=== PATIENT | female | born 1970 | race Caucasian/White ===

== ENCOUNTER 2016-11-04 09:12 | Observation (INO) | payer SELFPAY ==
[2016-11-04] MEDS ORDERED: Labetalol IV* 5 MG/ML 20 ML VIAL IV PUSH ONE ×2 (09:28→10:13)
[2016-11-04] MEDS ORDERED: Aspirin Low Dose CHEW TAB* 81 MG PO ONE (09:28)
[2016-11-04 09:54] LABS: Hematocrit 40 % (35-47); Hemoglobin 12.6 g/dl (12.0-16.0); Mean Corpuscular HGB Conc 32 g/dl (31-36); Mean Corpuscular Hemoglobin 25 pg (27-31); Mean Corpuscular Volume 79 fL (80-97); Mean Platelet Volume 8 um3 (7.4-10.4); Red Blood Count 5.06 10^6/ul (4.0-5.4); Red Cell Distribution Width 17 % (10.5-15); White Blood Count 5.4 10^3/ul (3.5-10.8)
[2016-11-04 10:17] LABS: Albumin 3.9 g/dL (3.2-5.2); BUN/Creatinine Ratio 9.2 (8-20); Calcium 9.1 mg/dL (8.6-10.3); EGFR Non-African American 70.7 (>60); Globulin 3.1 g/dL (2-4); Potassium 3.6 mmol/L (3.5-5.0); Total Bilirubin 0.6 mg/dL (0.2-1.0)
[2016-11-04 10:20] LABS: Troponin I 0.04 ng/mL (<0.04)
[2016-11-04 11:04] LABS: TSH (Thyroid Stimulating Horm) 5.66 mcIU/mL (0.34-5.60)
--- NOTE | 2016-11-04 11:07 | RAD ---
Indication: Hypertension. Single frontal view of the chest performed at 1033 hours was reviewed. Comparison is made with previous exam dated October 04, 2015. No mediastinal shift is noted. Heart is of normal size and configuration. Lung ochoa appear clear. IMPRESSION: NO ACTIVE CARDIOPULMONARY DISEASE IS NOTED.
[2016-11-04] MEDS ORDERED: Labetalol IV* 5 MG/ML 20 ML VIAL IV PUSH PRN (11:20)
[2016-11-04] MEDS ORDERED: Hydrochlorothiazide TAB* 25 MG ONE (11:21)
[2016-11-04] MEDS ORDERED: Hydrochlorothiazide TAB* 25 MG PO SCH (12:00)
--- NOTE | 2016-11-04 13:12 | HP ---
CC: Dr. Malcolm HISTORY AND PHYSICAL: DATE OF ADMISSION: 11/04/16 PRIMARY CARE PHYSICIAN: Dr. Malcolm. CHIEF COMPLAINT: Headache, vision problems, dyspnea on exertion. HISTORY OF PRESENT ILLNESS: Ms. Trevino is a pleasant 45-year-old female with a past medical history of hypertension, who presented to the hospital with 2-3 days of vision changes, shortness of breath, and headache. The patient states her symptoms began on Thursday, which was 3 days ago. She said she noticed a "fuzziness" in her eyes. Would intermittently feel lightheaded with dyspnea on exertion. She also felt nauseous; however, she does not have any emesis. Had a headache intermittently that seemed to improve with ibuprofen. Denies any chest pain. Symptoms were ongoing for the past few days, coming and going. She had been checking her blood pressures at home and noticed that they were elevated as per readings at home, with systolics in the 180s and diastolics in the 120s. She states her friends and family continued to pressure her to come to the hospital, which she finally decided to do today. Denies any fever, chills, diarrhea, constipation, dysuria, hematuria, hematochezia. Has noticed a dry cough. She states she had been on high blood pressure medications in the past, but after she had an ankle surgery, she stopped taking them. She states she was not sure if they were discontinued or she just stopped herself. She cannot recall what the medication was. She follows up with Dr. Malcolm and she states she last saw him maybe 6 months ago. PAST MEDICAL HISTORY: Hypertension. PAST SURGICAL HISTORY: Ankle surgery, tubal ligation. HOME MEDICATIONS: None. ALLERGIES: PENICILLIN that causes nausea and vomiting. FAMILY HISTORY: Significant for her mother with hypertension and a maternal grandmother with hypertension. SOCIAL HISTORY: The patient has a [id number] smoking history, still smoking about a half pack per day, reports having 3-4 beers 2-3 times a week. Denies any illicit drug use. PHYSICAL EXAMINATION GENERAL: The patient is a middle-aged female, lying in bed in no apparent distress. VITAL SIGNS: Temperature 97.4, heart rate of 106, respiratory rate of 16, O2 saturation 100% on room air, initial blood pressure 239/138. HEENT: Head normocephalic and atraumatic. Eyes, pupils are equal, round, and reactive to light and accommodation. Anicteric sclerae. ENT, dry mucous membranes. No cervical adenopathy. CARDIOVASCULAR: Regular rate and rhythm. S1, S2 present. No murmurs, gallops , or rubs. LUNGS: Clear to auscultation bilaterally. No wheezes, rales, or rhonchi. ABDOMEN: Soft, nontender, nondistended. Bowel sounds positive. EXTREMITIES: No cyanosis, clubbing, or edema. NEURO: The patient is alert and oriented x3. No focal neurological deficits. DIAGNOSTIC STUDIES/LAB DATA: White blood cell count of 5.4, hematocrit of 40, platelets of 279. Sodium of 132, potassium 3.6, chloride of 107, carbon dioxide 22, BUN 8, creatinine 0.87, glucose of 83, AST of 56, ALT of 64. CK of 80, CK-MB of 3.5, troponin 0.04, B-natriuretic peptide of 305. TSH of 5.66. EKG, personally reviewed, showed sinus tachycardia, some signs of LVH, T-wave inversions in I, aVL and V6, which do not seem new. Chest x-ray, final read pending; however, on my review, I do not see any abnormalities. ASSESSMENT AND PLAN: Hypertensive urgency, slight troponin elevation in a 45- year- old female with a past medical history of hypertension, not on medications. 1. Hypertensive Urgency: The patient received a total of 40 mg of IV labetalol in the emergency department, with some improvement in her blood pressures. Last blood pressure was 160/110, which is an improvement. Will start HCTZ and continue the patient on p.r.n. labetalol. We will monitor her blood pressures. 2. Troponin elevations. The patient has not had any chest pain, troponin is likely from strain due to HTN. EKG changes do not seem to be new. We will monitor the patient on telemetry and trend her troponins. 3. DVT prophylaxis. Ambulate. 4. Code status. The patient is a full code. TIME SPENT: Total time spent on this admission 35 minutes, with over half the time spent [id number] with the patient in counseling and coordinating care. [id number]/[facility] #: [id number] [facility] HOSPITALJoyce
[2016-11-04] MEDS ORDERED: Acetaminophen TAB* 325 MG PO PRN (13:34)
[2016-11-04 14:52] LABS: Urine Bacteria Absent (Absent); Urine Bilirubin Negative (Negative); Urine Glucose Negative (Negative); Urine Nitrite Negative (Negative)
[2016-11-04 16:49] VITALS: BP 149/90
--- NOTE | 2016-11-04 17:41 | ED ---
Tonny Maxwell Rebecca, scribed for Tyrone Resendez MD on 11/04/16 at 0948 . Hypertension - HPI Summary HPI Summary: Pt is a 45 y/o F who presents to ED c/o elevated BP. Reports that she has been using a home BP reader and her BP was been chronically elevated. Pt reports presenting to the ED today because she was urged by family members. Reports mild KWONG, slight chest discomfort and acute on chronic SOB. Sx aggravated and alleviated by nothing. Denies blurred vision. PMHx HTN - previously was on medication, but was taken off 5 years ago after an ankle surgery. SHx current smoker. - History of Current Complaint Chief Complaint: EDHypertension Stated Complaint: HIGH BLOOD PRESSURE Time Seen by Provider: 11/04/16 09:28 Hx Obtained From: Patient Hx Last Menstrual Period: 1 WEEK AGO Onset/Duration: Still Present Aggravating Factor(s): Nothing Alleviating Factor(s): Nothing Associated Signs & Symptoms: Chest Pain - mild, Headaches - mild, SOB - Allergies/Home Medications Allergies/Adverse Reactions: Allergies Allergy/AdvReac Type Severity Reaction Status Date / Time Penicillins [PCN] Allergy Intermediate Vomiting Verified 11/04/16 09:51 Home Medications: Home Medications NK [No Home Medications Reported] 11/04/16 [History Confirmed 11/04/16] PMH/Surg Hx/FS Hx/Imm Hx Cardiovascular History: Reports: Hx Hypertension Respiratory History: Reports: Hx Chronic Obstructive Pulmonary Disease (COPD), Hx Pneumonia - Cancer History Hx Chemotherapy: No Hx Radiation Therapy: No - Surgical History Surgery Procedure, Year, and Place: RIGHT ANKLE FX REPAIR, TUBAL LIGATION - Immunization History Date of Tetanus Vaccine: Up to date Date of Influenza Vaccine: None Infectious Disease History: No Infectious Disease History: Denies: History Other Infectious Disease, Traveled Outside the [place] in Last 30 Days - Family History Known Family History: Negative: Cardiac Disease - Social History Alcohol Use: Occasionally Substance Use Type: Reports: None Hx Tobacco Use: Yes Smoking Status (MU): Current Every Day Smoker Type: Cigarettes Review of Systems Negative: Blurred Vision Positive: Chest Pain - mild discomfort Positive: Shortness Of Breath - acute on chronic Positive: Headache - mild All Other Systems Reviewed And Are Negative: Yes Physical Exam - Summary Physical Exam Summary: VITAL SIGNS: Reviewed. GENERAL: Patient is an obese female who is lying comfortable in the stretcher. Patient is not in any acute respiratory distress and has on complaints. HEAD AND FACE: No signs of trauma. No ecchymosis, hematomas or skull depressions. No sinus tenderness. EYES: PERRLA, EOMI x 2, No injected conjunctiva, no nystagmus. EARS: Hearing grossly intact. Ear canals and tympanic membranes are within normal limits. MOUTH: Oropharynx within normal limits. NECK: Supple, trachea is midline, no adenopathy, no JVD, no carotid bruit, no c- spine tenderness, neck with full ROM. CHEST: Symmetric, no tenderness at palpation LUNGS: Clear to auscultation bilaterally. No wheezing or crackles. CVS: Regular rate and rhythm, S1 and S2 present, no murmurs or gallops appreciated. ABDOMEN: Soft, non-tender. No signs of distention. No rebound no guarding, and no masses palpated. Bowel sounds are normal. EXTREMITIES: FROM in all major joints, no edema, no cyanosis or clubbing. NEURO: Alert and oriented x 3. No acute neurological deficits. Speech is normal and follows commands. SKIN: Dry and warm Triage Information Reviewed: Yes Vital Signs On Initial Exam: Initial Vitals Temp Pulse Resp BP Pulse Ox 97.4 F 106 16 239/138 100 11/04/16 09:15 11/04/16 09:15 11/04/16 09:15 11/04/16 09:15 11/04/16 09:15 Vital Signs Reviewed: Yes Diagnostics - Vital Signs Vital Signs Temp Pulse Resp BP Pulse Ox 11/04/16 09:18 97.4 F 105 16 239/138 99 11/04/16 09:15 97.4 F 106 16 239/138 100 - Laboratory Result Diagrams: 11/04/16 09:40 11/04/16 09:40 Lab Statement: Any lab studies that have been ordered have been reviewed, and results considered in the medical decision making process. - EKG 0933 Cardiac Rate: Tachycardia - 107 bpm EKG Rhythm: Sinus Tachycardia EKG Interpretation: no ST elevations, T wave inversion in aVL and ST depression in V6 Hypertension Course/Dx - Course Assessment/Plan: Pt is a 45 y/o F who presents to ED c/o elevated BP. Reports that she has been using a home BP reader and her BP was been chronically elevated. Pt reports presenting to the ED today because she was urged by family members. Reports mild KWONG, slight chest discomfort and acute on chronic SOB. Sx aggravated and alleviated by nothing. Denies blurred vision. PMHx HTN - previously was on medication, but was taken off 5 years ago after an ankle surgery. SHx current smoker. Test results within normal limits except for sodium of 132, BNP of 305 and trop of 0.04, TSH 5.6. EKG shows sinus rhythm without ST elevation. In the ED course, we obtained an IV access for the patient. The patients BP is significantly elevated and it looks like she is in hypertensive urgency since she has a KWONG and CP. The patient was administered 20 mg Labetalol. The BP still very high, therefore she was given a second dose of Labetalol. At this point, because the hypertensive urgency and troponin we will r/o ACS. I disclosed the case with Dr. Longoria who accepts patient for admission. The patient is hemodynamically stable and AxOx3. - Diagnoses Provider Diagnoses: Hypertensive urgency, Elevated troponin, r/o ACS - Physician Notifications Discussed Care Of Patient With: Nima Longoria - Accepts pt for admission Time Discussed With Above Provider: 10:50 Discharge - Discharge Plan Condition: Good Disposition: ADMITTED TO [facility] The documentation as recorded by the Tonny willett Rebecca accurately reflects the service I personally performed and the decisions made by me, Tyrone Resendez MD.
== END 2016-11-04 19:43 | disposition home or self-care (01) ==
LOC: ED 09:12 → MEDTELE 10:51
PROVIDERS: ADMIT Hospitalist; ATTEND Hospitalist
DX: I16.0 Hypertensive urgency (principal); R74.8 Abnormal levels of other serum enzymes; R51 Headache; R06.00 Dyspnea, unspecified; H53.9 Unspecified visual disturbance; I10 Essential (primary) hypertension; J44.9 Chronic obstructive pulmonary disease, unspecified; R07.9 Chest pain, unspecified; R06.02 Shortness of breath; F17.210 Nicotine dependence, cigarettes, uncomplicated; R00.0 Tachycardia, unspecified; R94.31 Abnormal electrocardiogram [ECG] [EKG]
CPT/HCPCS: 36415; 71010; 80053; 81003; 81015; 82550; 82553; 83605; 83735; 83880; 84443; 84484; 85025; 93005; 96374; 96376; 99283; A9270-GY; G0378

== ENCOUNTER 2017-02-03 12:15 | Emergency (ER) | payer SELFPAY ==
--- NOTE | 2017-02-03 14:00 | UC ---
Hypertension HPI - HPI Summary HPI Summary: patient with a known history of HTN, was on HCTZ, however stopped for several weeks. Notes KWONG, lightheadedness, dizziness, b/l leg swelling and redness of toes, fingertips. Does not have insurance currently so has not follow up with PCP for med refill. - History of Current Complaint Chief Complaint: UCRespiratory Stated Complaint: URI Time Seen by Provider: 02/03/17 13:46 Hx Obtained From: Patient Hx Last Menstrual Period: 02/03/17 Onset/Duration: Gradual Onset, Lasting Weeks Associated Signs And Symptoms: Positive: Headaches, Dizziness, Swelling Current Medications: Diuretic - not taken x several weeks. - Allergies/Home Medications Allergies/Adverse Reactions: Allergies Allergy/AdvReac Type Severity Reaction Status Date / Time Penicillins [PCN] Allergy Intermediate Vomiting Verified 11/04/16 09:51 PMH/Surg Hx/FS Hx/Imm Hx Cardiovascular History: Hypertension - Surgical History Surgical History: Yes Surgery Procedure, Year, and Place: RIGHT ANKLE FX REPAIR, TUBAL LIGATION - Family History Known Family History: Positive: None - NO HEART ATTACKS, NO HISTORY OF BLOOD CLOTS Negative: Cardiac Disease - Social History Alcohol Use: Occasionally Alcohol Amount: 4-5 drinks/ week Substance Use Type: None Smoking Status (MU): Current Every Day Smoker Type: Cigarettes Amount Used/How Often: 1/2 PPD Review of Systems Cardiovascular: Other - HTN Musculoskeletal: Edema - b/l LE Neurological: Headache, Weakness All Other Systems Reviewed And Are Negative: Yes Physical Exam Triage Information Reviewed: Yes Appearance: Well-Appearing, No Pain Distress, Well-Nourished Vital Signs: Initial Vital Signs Temp 97.6 F 02/03/17 13:39 Pulse 103 02/03/17 13:39 Resp 18 02/03/17 13:39 BP 238/147 02/03/17 13:39 Pulse Ox 98 02/03/17 13:39 Vital Signs Reviewed: Yes Eyes: Positive: Conjunctiva Clear Respiratory: Positive: Normal breath sounds, No respiratory distress, No accessory muscle use, Crackles - b/l LL's Cardiovascular: Positive: No Murmur, Pulses Normal, Tachycardia Abdomen Description: Positive: Nontender, No Organomegaly, Soft, Bruit Musculoskeletal: Positive: Edema @ - b/l les minimal, pulses 2+ Hypertension Course/Dx - Course Course Of Treatment: adryn transferred to [facility] ER for further treatment - Differential Dx/Diagnosis Differential Diagnosis/HQI PQRI: Hypertension, Hypertensive Crisis, Hypertensive Urgency Provider Diagnoses: HTN emergency Discharge - Discharge Plan Condition: Fair Disposition: TRANS HIGHER LVL OF CARE FAC Referrals: Tao Malcolm MD [Primary Care Provider] - Additional Instructions: -Hypertensive emergency- patient transferred via [place] to [facility] ER
[2017-02-03] MEDS ORDERED: Aspirin Low Dose CHEW TAB* 81 MG PO ONE (14:02)
[2017-02-03] MEDS ORDERED: Aspirin Low Dose CHEW TAB* 81 MG ONE (14:03)
[2017-02-03 14:19] VITALS: BP 240/127
== END 2017-02-03 14:05 | disposition short-term general hospital (02) ==
LOC: UCEAST 12:15
DX: I10 Essential (primary) hypertension (principal); Z72.0 Tobacco use
CPT/HCPCS: 93005; 99213; A9270-GY; G0463

== ENCOUNTER 2017-02-03 14:29 | Observation (INO) | payer SELFPAY ==
[2017-02-03] MEDS ORDERED: Aspirin Low Dose CHEW TAB* 81 MG PO ONE (15:09)
[2017-02-03] MEDS ORDERED: Hydrochlorothiazide TAB* 25 MG PO ONE (15:10)
[2017-02-03] MEDS ORDERED: Metoprolol Tartrate IV* 1 MG/ML 5 ML VIAL IV ONE ×2 (15:10→16:51)
--- NOTE | 2017-02-03 15:33 | RAD ---
INDICATION: Hypertension, peripheral edema. COMPARISON: Comparison is made with a prior chest x-ray study from November 04, 2016. TECHNIQUE: A portable view of the chest was obtained. FINDINGS: The heart appears mildly prominent and unchanged from the prior exam. Mediastinal contours appear normal. The lungs are clear. No pleural effusion is seen. IMPRESSION: NO EVIDENCE FOR ACUTE DISEASE.
[2017-02-03 16:05] LABS: Hematocrit 41 % (35-47); Hemoglobin 13.2 g/dl (12.0-16.0); Mean Corpuscular HGB Conc 32 g/dl (31-36); Mean Corpuscular Hemoglobin 26 pg (27-31); Mean Corpuscular Volume 79 fL (80-97); Mean Platelet Volume 8 um3 (7.4-10.4); Red Blood Count 5.14 10^6/ul (4.0-5.4); Red Cell Distribution Width 19 % (10.5-15)
[2017-02-03 16:13] LABS: Albumin 4.2 g/dL (3.2-5.2); BUN/Creatinine Ratio 11.7 (8-20); Calcium 9.7 mg/dL (8.6-10.3); EGFR African American 68.4 (>60); EGFR Non-African American 53.2 (>60); Globulin 3.5 g/dL (2-4); Total Bilirubin 0.7 mg/dL (0.2-1.0); Total Protein 7.7 g/dL (6.4-8.9)
[2017-02-03 16:19] LABS: Troponin I 0.06 ng/mL (<0.04)
[2017-02-03] MEDS ORDERED: hydrALAZINE IV* 20 MG/ML VIAL IV SLOW PU PRN (17:24)
[2017-02-03] MEDS ORDERED: Azithromycin TAB* 250 MG PO ONE (17:31)
[2017-02-03] MEDS ORDERED: Albuterol 2.5 MG/3 ML NEB.SOL* (0.083%) INH PRN (17:32)
[2017-02-03] MEDS ORDERED: amLODIPine TAB* 5 MG ONE (18:07)
[2017-02-03] MEDS: amLODIPine TAB* 5 MG PO SCH (18:10)
[2017-02-03] MEDS ORDERED: hydrALAZINE IV* 20 MG/ML VIAL ONE (19:58)
[2017-02-03 20:35] LABS: Urine Bacteria Absent (Absent); Urine Bilirubin Negative (Negative); Urine Glucose Negative (Negative); Urine Nitrite Negative (Negative)
--- NOTE | 2017-02-03 23:16 | HP ---
CC: Dr. Malcolm * HISTORY AND PHYSICAL: DATE OF ADMISSION: 02/03/17 PRIMARY CARE PROVIDER: Dr. Malcolm. ATTENDING PHYSICIAN WHILE IN THE HOSPITAL: Dr. Seng Yun * (report dictated by Damon Pantoja NP) CHIEF COMPLAINT: 1. Cold symptoms. 2. Cough. 3. Rhinorrhea. 4. Elevated blood pressure. HISTORY OF PRESENT ILLNESS: Ms. Trevino is a 46-year-old female patient, who comes in today, she actually went to Urgent Care originally today because she was having complaints of cold symptoms. She last week has been having runny nose, coughing, feeling congested. She woke up this morning, her eyes were swollen. She had been having some increasing shortness of breath over the last week, in addition to this, had just not been feeling well. She has been aching all over. She states that she had chills last night and she just was not feeling well. She came into the emergency department today after being referred here because at Urgent Care, it was noted that her blood pressures were in the 200 systolically/120. She was on hydrochlorothiazide up until about a month ago when she ran out of insurance and was unable to take the medication. In addition to this, she has been taking Mucinex DM and she has also been taking NyQuil DM as well. She denies having any headache. Denies any blurry vision. Denies having any chest pain. She came into the ER and noted to have an elevated troponin. She denied having any orthopnea and denied having any swelling of the extremities. She was evaluated in the ED because of the increased blood pressure, the fact that her troponin was mildly elevated, we were asked to evaluate for admission. PAST MEDICAL HISTORY: Significant for hypertension. PAST SURGICAL HISTORY: 1. She has had ankle surgery. 2. She has had tubal ligation. MEDICATIONS: Her home meds, she is not currently taking meds, she is supposed to be taking hydrochlorothiazide 25 mg p.o. daily. ALLERGIES: Her allergies to medications include PENICILLIN. FAMILY HISTORY: Mother had history of hypertension. Father's history reviewed and noncontributory. She says that as far as she knows, her father is healthy. SOCIAL HISTORY: She still smokes about 1 to 2 cigarettes a day. She has been smoking since the age of 16. She does drink occasionally. Surrogate decision maker is her . REVIEW OF SYSTEMS: There is no documented fever. She did admit to having chills. No significant weight change. No double vision. No ear discharge. There was rhinorrhea. There was sore throat. No thyroid enlargement. Denied having any chest pain. No orthopnea, no nocturnal dyspnea. There was no abdominal pain. No nausea, no vomiting. No dysuria, no frequency. No seizure , no loss of consciousness. No pruritus and no skin ulceration. Review of 14 systems completed, all others negative. PHYSICAL EXAMINATION GENERAL: At this time, Ms. Trevino is a 46-year-old female patient. She is sitting in the ER stretcher. She does not appear to be in any acute distress. She is awake, alert, and oriented x3. VITAL SIGNS: Reveal initially blood pressure 225/140, pulse of 88, respirations 18, O2 sat was 97%, temperature 98.5, last blood pressure was noted to be 180/101. HEENT: Head atraumatic, normocephalic. Eyes: EOMs intact. Sclerae anicteric , not pale. Throat: Oral mucosa appears to be moist. NECK: Supple. No oropharyngeal erythema. LUNGS: Clear to auscultation. No wheezes, rales, or rhonchi. HEART: Sounds S1, S2. Regular rate and rhythm. No murmurs, rubs, or gallops. ABDOMEN: Soft, flat, nontender. Bowel sounds present. EXTREMITIES: Pulses were 2+ throughout. No peripheral edema. She is able to move all 4 extremities with 5/5 strength. NEUROLOGIC: The patient is awake, alert, and oriented x3. Tongue midline. Chinese Herbalist were equal. No gross focal deficits. SKIN: Grossly intact. DIAGNOSTIC STUDIES/LAB DATA: Today revealed WBC of 7.0, RBC of 5.14, hemoglobin of 13.2, hematocrit of 41, platelet count of 270. Sodium 135, potassium of 4, chloride of 101, bicarb 27, BUN 13, creatinine 1.11, glucose of 94, lactate of 1.2, calcium 9.7. Total bili 0.7, AST 36, ALT 28, alk phos 81. Troponin 0.06. Albumin of 4.2. She did have a chest x-ray obtained today showed no evidence of acute disease. EKG did show a sinus rhythm, rate of 91. She had T-wave inversions in lead I, ST depression in lead II, inversions in V1, V5, V6. I reviewed it with the previous EKG, it appears to be similar. She does have criteria for LVH. No significant change from previous EKG. Old medical records were reviewed. ASSESSMENT AND PLAN: Ms. Trevino is a 46-year-old female patient coming in to the ER today with complaints of upper respiratory symptoms and cold symptoms for the last week, continuing to smoke. In addition to this, in urgent care found to have elevated blood pressure. She will be admitted under observation status for: 1. Hypertensive urgency. At this point, I am going to go ahead and reinstate her hydrochlorothiazide. We will get on her some Norvasc. We have ordered p.r.n. hydralazine. I think she is not having any chest pain currently. No headache. No signs of hypertension emergency. We will get her on telemetry and we will cycle her troponins and get an echo. I suspect that the reason her blood pressure is elevated is because she has been missing her meds. In addition to this, she has been taking medications for her cold that do contain decongestion. 2. Elevated troponins. Probably secondary to some left ventricular strain secondary to the blood pressure. We will get the blood pressure under control. She already got an aspirin, we will continue baby aspirin. Going forward, we are getting the echo. We will trend these. Obviously, if they go up, I will get Cardiology input. 3. Upper respiratory infection. She has been dealing with this for weeks. She is continuing to smoke. She had chills last night. So, I am going to put her on Z- Fletcher. We will give her 500 mg now and then 250 starting. I have ordered p.r.n. albuterol and I have told her to avoid decongestants and I am checking a flu swab. 4. DVT prophylaxis. I am going to put her on SCDs only. 5. Code status. Full code. 6. Fluids, electrolytes, and nutrition. She can have a heart healthy diet. 7. Social issues. I did place a Social Work consult as the patient does not have insurance. TIME SPENT: On the admission 60 minutes; greater than half the time was spent face- to-face with the patient obtaining my history and physical, other half the time was spent going over the plan of care with the patient and implementing the plan of care. I did discuss plan of care with my attending, Dr. Yun; he is in agreement. DAMON PANTOJA NP [id number]/[facility] #: [id number] [facility]
[2017-02-04 07:05] LABS: Hematocrit 39 % (35-47); Hemoglobin 12.6 g/dl (12.0-16.0); Mean Corpuscular HGB Conc 32 g/dl (31-36); Mean Corpuscular Hemoglobin 26 pg (27-31); Mean Corpuscular Volume 79 fL (80-97); Mean Platelet Volume 8 um3 (7.4-10.4); Red Blood Count 4.94 10^6/ul (4.0-5.4); Red Cell Distribution Width 19 % (10.5-15); White Blood Count 6.9 10^3/ul (3.5-10.8)
[2017-02-04 07:23] LABS: Calcium 9.3 mg/dL (8.6-10.3); EGFR African American 71.3 (>60); EGFR Non-African American 55.5 (>60); Potassium 3.5 mmol/L (3.5-5.0)
[2017-02-04] MEDS ORDERED: Azithromycin TAB* 250 MG PO SCH (09:00)
[2017-02-04] MEDS ORDERED: Aspirin Low Dose CHEW TAB* 81 MG PO SCH (09:00)
[2017-02-04] MEDS ORDERED: Hydrochlorothiazide TAB* 25 MG PO SCH (09:00)
[2017-02-04] MEDS: amLODIPine TAB* 5 MG PO SCH (10:21)
--- NOTE | 2017-02-04 12:55 | ECHO ---
Patient: JOANNA ALAMO [facility] Rec#: [id number] : 1970 Date: 02/04/2017 Age: 46y Height: 157.48 cm / 62.0 in Weight: 95.25 kg / 209.9 lbs Sex: F BSA: 1.95 Room#: [facility] Admit Date#: 02/03/2017 Type: Inpatient Referring: Damon Pantoja NP Reading: Lora Jackson MD Senior Systems Software Engineer: Teresa Almanzar RDCS CC: Tao Malcolm MD Transthoracic Echocardiogram Indication: Hypertension BP: 177/109 HR: 85 Rhythm: NSR Findings History: Smoker. Technical Comments: The study quality is fair. The study is technically limited due to patient body habitus. The study is technically limited due to the patient's smoking history. Completed at 1015. Left Ventricle: The left ventricular chamber size is normal. Severe concentric left ventricular hypertrophy is observed. There is increased basal septal hypertrophy noted without evidence of an increased gradient across the left ventricular outflow tract. There is normal left ventricular systolic function. The estimated ejection fraction is 55-60%. Abnormal left ventricular diastolic function is observed. Left Atrium: The left atrium is moderately dilated. Right Ventricle: Moderator Band present. The right ventricle is mildly dilated. The right ventricle wall thickness is moderately increased. The right ventricular global systolic function is mildly to moderately reduced. Right Atrium: The right atrium is moderately dilated. Aortic Valve: The aortic valve is trileaflet. The aortic valve leaflets are mildly thickened. There is mild aortic regurgitation. eccentric jet. There is no evidence of aortic stenosis. Mitral Valve: The mitral valve leaflets are mildly thickened. Mitral valve leaflet mobility is moderately restricted. There is mild to moderate mitral regurgitation. There is mild mitral stenosis. Tricuspid Valve: The tricuspid valve leaflets are normal. There is moderate tricuspid regurgitation. The right ventricular systolic pressure is estimated at 72 mmHg. There is evidence of severe pulmonary hypertension. There is no tricuspid stenosis. Pulmonic Valve: The pulmonic valve appears normal. There is mild to moderate pulmonic regurgitation. eccentric jet and centra jet. There is no pulmonic stenosis. Pericardium: There is no significant pericardial effusion. A pericardial fat pad is visualized. Aorta: There is no dilatation of the ascending aorta. There is mild dilatation of the aortic arch. The aortic root is normal in size. Pulmonary Artery: The main pulmonary artery appears normal. Venous: Hepatic vein systolic flow is reversed. Conclusions Severe concentric left ventricular hypertrophy is observed. Single papillary muscle noted. There is normal left ventricular systolic function. The estimated ejection fraction is 55-60%. Abnormal left ventricular diastolic function. The right ventricle wall thickness is moderately increased. The right ventricular global systolic function is mildly to moderately reduced. Aortic valve sclerosis with mild aortic regurgitation, eccentric jet. Mitral valve leaflet mobility is moderately restricted, chordae from both leaflets attach to single papillary muscle. There is moderate mitral regurgitation. There is mild mitral stenosis: V max 2.11 m/s, mean gradient 7.7 mmHg, MVA P 1/2 is 2.5 cm2 . There is moderate tricuspid regurgitation. There is evidence of severe pulmonary hypertension: 72 mmHg. There is mild to moderate pulmonic regurgitation. There is mild dilatation of the aortic arch. No prior echo available to compare. Measurements Name Value Normal Range RVIDd (AP) 2D 3.2 cm (0.9 - 2.6) RVDdMajor (2D) 4.4 cm (2.2 - 4.4) RVAW (2D) 0.9 cm (0.2 - 0.5) RAd ISD 4CH 5.9 cm (3.4 - 4.9) RA (A4C)W 4 cm (2.9 - 4.6) IVSd (2D) 2.1 cm (0.6 - 1) LVPWd (2D) 1.7 cm (0.6 - 1) LVIDd (2D) 3.8 cm (3.6 - 5.4) LVIDs (2D) 2.5 cm - LV FS (2D) 34 % (25 - 45) Aortic Annulus 1.9 cm (1.4 - 2.6) Ao root diameter (2D) 2.7 cm (2.1 - 3.5) Ascending Ao 3.1 cm (2.1 - 3.4) Aortic arch 3.41 cm (1.8 - 3.4) LA dimension (AP) 2D 4.7 cm (2.3 - 3.8) LAd ISD 4CH 6.3 cm (2.9 - 5.3) LA ISD 4CH W 5 cm (2.5 - 4.5) Name Value Normal Range LA ESV SP 4CH (A/L) 91 ml - LA ESV SP 2CH (A/L) 65 ml - LA ESV BP (A/L) 77 ml - LA ESV BP (A/L) index 39.57 ml/m2 - LA ESV SP 4CH (MOD) 85 ml - LA ESV SP 2CH (MOD) 62 ml - Name Value Normal Range MV E-wave Vmax 1.63 m/sec - MV deceleration time 244.18 msec - MV A-wave Vmax 1.12 m/sec - MV E:A ratio 1.4 ratio - LV septal e' Vmax 0.04 m/sec - LV lateral e' Vmax 0.04 m/sec - LV E:e' septal ratio 40.75 ratio - LV E:e' lateral ratio 40.75 ratio - Name Value Normal Range AV Vmax 1.54 m/sec - AV VTI 24.2 cm - AV peak gradient 9.48 mmHg - AV mean gradient 5.12 mmHg - LVOT Vmax 1.24 m/sec - LVOT VTI 21.11 cm - LVOT peak gradient 6.11 mmHg - LVOT mean gradient 3.24 mmHg - AR PHT 596.3 msec - AR peak gradient 105.2 mmHg - HAYLIE Vmax 0.65 m/sec - Name Value Normal Range MV Vmax 2.11 m/sec - MV VTI 48.77 cm - MV peak gradient 17.78 mmHg - MV mean gradient 7.67 mmHg - MV PHT 86.72 msec - MVA (PHT) 2.54 cm2 - Name Value Normal Range TR Vmax 4 m/sec - TR peak gradient 64 mmHg - RAP 8 mmHg - RVSP 72 mmHg - IVC diameter 1.8 cm - Name Value Normal Range PV Vmax 0.76 m/sec - PV peak gradient 2.3 mmHg - ME end-diastolic Vmax 1.95 m/sec -
--- NOTE | 2017-02-04 14:24 | DCNOTE ---
Patient seen this morning. Reports URI symptoms resolved. Feeling much better. No chest pain, headache, N/V. On exam, RRR, s1 and s2 presnent, no m/g/r, lungs CTA B/L, no w/r/r, abd obese, soft, NTND, BS+, no LE edema Will plan to discharge on BP medications and a few additional days of Azithromycin. Stressed the importance of medication compliance and PCP follow- up and the risk of stroke. Also counseled on smoking cessation.
[2017-02-04 18:09] VITALS: BP 161/97
--- NOTE | 2017-02-05 08:41 | ED ---
Daniel Maxwell Thomas, scribed for Stanislaw Abel MD on 02/03/17 at 1455 . Hypertension - HPI Summary HPI Summary: The pt is a 46 y/o F referred from [facility] [facility] with a blood pressure reading of 225/ 140. In the ED, she complains of ankle swelling, dizziness, and KWONG. She denies CP, blurred vision, slurred speech, tingling, and numbness. She says that she has been having elevated blood pressures for the last 3 or 4 weeks. She was admitted to [facility] on 11/04/16 for hypertensive urgency. She says that after her discharge from [facility], she was prescribed HCTZ 25mg PO. She says that she can afford this medication although she cannot afford another appointment with her PCP. PMHx: COPD, HTN, PNA. PSHx: R ankle repair, tubal ligation. SHx: current smoker, occasional alcohol use, no illicit drug use. She is accompanied by her friend. PMHx: HTN, COPD, PNA. PSHx: R ankle repair, tubal ligation. SHx: current smoker, occasional alcohol use, no illicit drug use. FHx: negative for AL. Her PCP is Dr. Malcolm. - History of Current Complaint Chief Complaint: EDGeneral Stated Complaint: HEADACHE,INCREASED BP-SENT FROM [facility] Time Seen by Provider: 02/03/17 14:46 Hx Obtained From: Patient, Family/Dry Cleaning Counter Clerk - friend is present Hx Last Menstrual Period: 02/03/17 Onset/Duration: Started Hours Ago - referred from [facility] [place] today, Still Present Timing: Constant Reported Blood Pressure Prior To Arrival: 225/140 Aggravating Factor(s): Nothing Alleviating Factor(s): Nothing Associated Signs & Symptoms: Headaches, Dizziness, Swelling - ankle, Other: - NEG: CP, blurred vision, slurred speech, tingling, numbness Related Hx: Similar Episode - to prior hypertensive urgency - Allergies/Home Medications Allergies/Adverse Reactions: Allergies Allergy/AdvReac Type Severity Reaction Status Date / Time Penicillins [PCN] Allergy Intermediate Vomiting Verified 11/04/16 09:51 PMH/Surg Hx/FS Hx/Imm Hx Previously Healthy: No Cardiovascular History: Reports: Hx Hypertension Respiratory History: Reports: Hx Chronic Obstructive Pulmonary Disease (COPD), Hx Pneumonia Sensory History: Denies: Hx Contacts or Glasses, Hx Hearing Aid Opthamlomology History: Denies: Hx Contacts or Glasses - Cancer History Hx Chemotherapy: No Hx Radiation Therapy: No - Surgical History Surgery Procedure, Year, and Place: RIGHT ANKLE FX REPAIR, TUBAL LIGATION - Immunization History Date of Tetanus Vaccine: Up to date Date of Influenza Vaccine: None Infectious Disease History: No Infectious Disease History: Denies: History Other Infectious Disease, Traveled Outside the [place] in Last 30 Days - Family History Known Family History: Positive: Other - NEG: AL Negative: Cardiac Disease - Social History Alcohol Use: Occasionally Alcohol Amount: 4-5 drinks/ week Substance Use Type: Reports: None Hx Tobacco Use: Yes Smoking Status (MU): Current Every Day Smoker Type: Cigarettes Amount Used/How Often: 1/2 PPD Review of Systems Negative: Fever, Chills Negative: Blurred Vision, Erythema - eyes Negative: Sore Throat Negative: Chest Pain Negative: Shortness Of Breath, Cough Negative: Abdominal Pain, Vomiting, Nausea Negative: dysuria, hematuria Positive: Other - POS: ankle swelling. Negative: Myalgia Negative: Rash Neurological: Other - POS: dizziness; NEG: tingling Positive: Headache. Negative: Numbness, Slurred Speech All Other Systems Reviewed And Are Negative: Yes Physical Exam - Summary Physical Exam Summary: Constitutional: Well-developed, Well-nourished, Alert. (-) Distressed Skin: Warm, Dry HENT: Normocephalic; Atraumatic Eyes: Conjunctiva normal Neck: Musculoskeletal ROM normal neck. (-) JVD, (-) Stridor, (-) Tracheal deviation Cardio: Rhythm regular, rate normal, Heart sounds normal; Intact distal pulses; The pedal pulses are 2+ and symmetric. Radial pulses are 2+ and symmetric. (-) Murmur Pulmonary/Chest wall: Effort normal. (-) Respiratory distress, (-) Wheezes, (-) Rales Abd: Soft, (-) Tenderness, (-) Distension, (-) Guarding, (-) Rebound Musculoskeletal: There is no significant edema. Lymph: (-) Cervical adenopathy Neuro: Alert, Oriented x3 Psych: Mood and affect Normal Triage Information Reviewed: Yes Vital Signs On Initial Exam: Initial Vitals Temp Pulse Resp BP Pulse Ox 98.5 F 88 18 225/140 97 02/03/17 14:35 02/03/17 14:35 02/03/17 14:35 02/03/17 14:35 02/03/17 14:35 Vital Signs Reviewed: Yes - Galvin Coma Scale Coma Scale Total: 15 Diagnostics - Vital Signs Vital Signs Temp Pulse Resp BP Pulse Ox 02/03/17 14:35 98.5 F 88 18 225/140 97 - Laboratory Lab Results: Lab Results 02/03/17 02/03/17 02/03/17 Range/Units 14:00 14:00 14:00 WBC 7.0 (3.5-10.8) 10^3/ul RBC 5.14 (4.0-5.4) 10^6/ul Hgb 13.2 (12.0-16.0) g/dl Hct 41 (35-47) % MCV 79 L (80-97) fL MCH 26 L (27-31) pg MCHC 32 (31-36) g/dl RDW 19 H (10.5-15) % Plt Count 270 (150-450) 10^3/ul MPV 8 (7.4-10.4) um3 Neut % (Auto) 68.5 (38-83) % Lymph % (Auto) 24.4 L (25-47) % Vinton % (Auto) 5.5 (1-9) % Eos % (Auto) 0.9 (0-6) % Baso % (Auto) 0.7 (0-2) % Absolute Neuts (auto) 4.8 (1.5-7.7) 10^3/ul Absolute Lymphs (auto) 1.7 (1.0-4.8) 10^3/ul Absolute Monos (auto) 0.4 (0-0.8) 10^3/ul Absolute Eos (auto) 0.1 (0-0.6) 10^3/ul Absolute Basos (auto) 0 (0-0.2) 10^3/ul Absolute Nucleated RBC 0 10^3/ul Nucleated RBC % 0.1 Sodium 135 (133-145) mmol/L Potassium 4.0 (3.5-5.0) mmol/L Chloride 101 (101-111) mmol/L Carbon Dioxide 27 (22-32) mmol/L Anion Gap 7 (2-11) mmol/L BUN 13 (6-24) mg/dL Creatinine 1.11 H (0.51-0.95) mg/dL Est GFR ( Amer) 68.4 (>60) Est GFR (Non-Af Amer) 53.2 (>60) BUN/Creatinine Ratio 11.7 (8-20) Glucose 94 (70-100) mg/dL Lactic Acid (0.5-2.0) mmol/L Calcium 9.7 (8.6-10.3) mg/dL Total Bilirubin 0.70 (0.2-1.0) mg/dL AST 36 (13-39) U/L ALT 28 (7-52) U/L Alkaline Phosphatase 81 (34-104) U/L Troponin I 0.06 H* (<0.04) ng/mL B-Natriuretic Peptide 684 H ( - 100) pg/mL Total Protein 7.7 (6.4-8.9) g/dL Albumin 4.2 (3.2-5.2) g/dL Globulin 3.5 (2-4) g/dL Albumin/Globulin Ratio 1.2 (1-3) 02/03/17 Range/Units 15:59 WBC (3.5-10.8) 10^3/ul RBC (4.0-5.4) 10^6/ul Hgb (12.0-16.0) g/dl Hct (35-47) % MCV (80-97) fL MCH (27-31) pg MCHC (31-36) g/dl RDW (10.5-15) % Plt Count (150-450) 10^3/ul MPV (7.4-10.4) um3 Neut % (Auto) (38-83) % Lymph % (Auto) (25-47) % Vinton % (Auto) (1-9) % Eos % (Auto) (0-6) % Baso % (Auto) (0-2) % Absolute Neuts (auto) (1.5-7.7) 10^3/ul Absolute Lymphs (auto) (1.0-4.8) 10^3/ul Absolute Monos (auto) (0-0.8) 10^3/ul Absolute Eos (auto) (0-0.6) 10^3/ul Absolute Basos (auto) (0-0.2) 10^3/ul Absolute Nucleated RBC 10^3/ul Nucleated RBC % Sodium (133-145) mmol/L Potassium (3.5-5.0) mmol/L Chloride (101-111) mmol/L Carbon Dioxide (22-32) mmol/L Anion Gap (2-11) mmol/L BUN (6-24) mg/dL Creatinine (0.51-0.95) mg/dL Est GFR ( Amer) (>60) Est GFR (Non-Af Amer) (>60) BUN/Creatinine Ratio (8-20) Glucose (70-100) mg/dL Lactic Acid 1.2 (0.5-2.0) mmol/L Calcium (8.6-10.3) mg/dL Total Bilirubin (0.2-1.0) mg/dL AST (13-39) U/L ALT (7-52) U/L Alkaline Phosphatase (34-104) U/L Troponin I (<0.04) ng/mL B-Natriuretic Peptide ( - 100) pg/mL Total Protein (6.4-8.9) g/dL Albumin (3.2-5.2) g/dL Globulin (2-4) g/dL Albumin/Globulin Ratio (1-3) Result Diagrams: 02/04/17 06:36 02/04/17 06:36 Lab Statement: Any lab studies that have been ordered have been reviewed, and results considered in the medical decision making process. - Radiology CXR Xray Interpretation: No Acute Changes - CXR shows no evidence for acute disease. ED physician has reviewed this report and agrees. Radiology Interpretation Completed By: Radiologist - EKG 14:42 Cardiac Rate: NL - 92 BPM EKG Interpretation: TWI V5V6 (unchanged). No STEMI. Re-Evaluation - Re-Evaluation First Eval Re-Evaluation Time: 16:52 Change: Unchanged Comment: She is still hypertensive at 210 systolic. Hypertension Course/Dx - Course Assessment/Plan: The pt is a 46 y/o F referred from [facility] with a blood pressure reading of 225/140. In the ED, she complains of ankle swelling, dizziness, and KWONG. She says that she has been having elevated blood pressures for the last 3 or 4 weeks. She was admitted to [facility] on 11/04/16 for hypertensive urgency. She says that after her discharge from [facility], she was prescribed HCTZ 25mg PO. She says that she can afford this medication although she cannot afford another appointment with her PCP. In the ED she was given ASA, HCTZ, and metoprolol. Bloodwork shows BNP 684 and Troponin 0.06. EKG shows TWI in V5, V6 (unchanged). No STEMI. CXR shows no evidence for acute disease. ED physician has reviewed this report and agrees. I consulted with Damon Pantoja NP, who admits the patient to [facility]. - Diagnoses Provider Diagnoses: Hypertensive urgency - Physician Notifications Discussed Care Of Patient With: Damon Pantoja Time Discussed With Above Provider: 16:40 Instructed by Provider To: Other - He admits the patient to [facility]. Discharge - Discharge Plan Condition: Fair Disposition: ADMITTED TO [facility] The documentation as recorded by the Daniel willett Thomas accurately reflects the service I personally performed and the decisions made by me, Stanislaw Abel MD.
--- NOTE | 2017-02-05 09:02 | DS ---
CC: Dr. Malcolm * DISCHARGE SUMMARY: DATE OF ADMISSION: 02/03/17 DATE OF DISCHARGE: 02/04/17 PRIMARY CARE PHYSICIAN: Dr. Malcolm. PRINCIPAL DISCHARGE DIAGNOSES: 1. Hypertensive urgency. 2. Upper respiratory infection. DISCHARGE MEDICATION REGIMEN: 1. Hydrochlorothiazide 25 mg by mouth daily. 2. Azithromycin 250 mg by mouth daily x3 days. STUDIES DONE DURING HOSPITALIZATION: Chest x-ray, impression: No evidence for acute disease. Transthoracic echocardiogram: Severe concentric LVH is observed. Single papillary muscle noted. There is normal left ventricular systolic function, estimated ejection fraction 55% to 60%, abnormal left ventricular diastolic function. The right ventricle wall thickness is moderately increased, right ventricular global systolic function is mild to moderately reduced, aortic valve sclerosis with mild regurgitation. Mitral valve leaflet mobility is moderately restricted. Chordae from both leaflets attached to a single papillary muscle. There is moderate mitral regurgitation, mild mitral stenosis , moderate tricuspid regurgitation, evidence of severe pulmonary hypertension, [id number] pulmonic regurgitation, mild dilatation of the aortic arch. No prior echo available to compare. HISTORY OF PRESENT ILLNESS AND HOSPITAL SUMMARY: Please see the full history and physical by Damon Pantoja NP, for full details. Briefly, Ms. Trevino is a 46- year-old female with a known history of hypertension, who initially presented to the Urgent Care due to URI symptoms. There she was found to have elevated blood pressure with systolics greater than 200. The patient reportedly was on hydrochlorothiazide, which was prescribed the last time she was hospitalized; however, she ran out a few weeks ago and has not been taking the medication since. Here in the hospital, she was restarted on hydrochlorothiazide and was also additionally given amlodipine. She also got a dose of p.r.n. hydralazine. Overnight, her blood pressures improved, last blood pressure was 170/86. Decision was made to discharge the patient on hydrochlorothiazide 25 mg by mouth daily as it was unclear she will be able to afford amlodipine in addition to this. The patient was strongly suggested that she follow up with her PCP as she did not after the last discharge and that she keep a close eye on her blood pressures. She was instructed to check her blood pressure a few times a week at least and to contact her PCP office if she notices systolic greater than 170 or diastolic greater than 100 as she may need additional medication changes. As noted on echo above, she already has some hypertensive cardiac changes, which will hopefully improve with appropriate blood pressure management. The patient will also be discharged on a few additional days of azithromycin. She is scheduled to follow up with Dr. Malcolm on 02/10/17. She is also strongly encouraged to stop smoking. TIME SPENT: Total time spent on this discharge 45 minutes. This is a summary of hospitalization. Please see the full medical record for further details. [id number] #: [id number] JEM
== END 2017-02-04 18:05 | disposition home or self-care (01) ==
LOC: ED 14:29 → MEDTELE 17:21
PROVIDERS: ADMIT Internal Medicine; ATTEND Hospitalist
DX: I16.0 Hypertensive urgency (principal); J06.9 Acute upper respiratory infection, unspecified; R74.8 Abnormal levels of other serum enzymes; I51.7 Cardiomegaly; R94.31 Abnormal electrocardiogram [ECG] [EKG]; Z79.899 Other long term (current) drug therapy; Z88.0 Allergy status to penicillin; F17.210 Nicotine dependence, cigarettes, uncomplicated; R06.02 Shortness of breath
CPT/HCPCS: 36415; 71010; 80048; 80053; 81003; 81015; 82570; 83605; 83880; 84300; 84484; 85025; 85610; 87086; 87502; 93005; 93306; 96374; 96375; 96376; 99283; A9270-GY; G0378; J0360

== ENCOUNTER 2017-11-18 19:53 | Emergency (ER) | payer SELFPAY ==
[2017-11-18] MEDS ORDERED: NS 0.9% 1000 ML* 1,000 ML IV ONE (21:28)
[2017-11-18] MEDS ORDERED: diPHENhydraMINE IV* 50 MG/ML 1 ml VIAL (BENADRYL) IV ONE (21:32)
[2017-11-18] MEDS ORDERED: Metoclopramide IV* 5 MG/ML 2 ML VIAL IV ONE (21:32)
[2017-11-18 22:04] LABS: Urine Appearance Cloudy; Urine Blood 1+ (Negative); Urine Color Yellow; Urine Ketones Negative (Negative); Urine Protein 1+(30 mg/dL) (Negative); Urine Red Blood Cell Trace(0-2/hpf) (Absent); Urine Specific Gravity 1.018 (1.010-1.030); Urine Urobilinogen Negative (Negative); Urine White Blood Cell Absent (Absent)
[2017-11-18 22:05] LABS: ABS Basophils 0 10^3/ul (0-0.2); ABS Eosinophils 0 10^3/ul (0-0.6); ABS Lymphocytes 1.2 10^3/ul (1.0-4.8); ABS Monocytes 0.5 10^3/ul (0-0.8); ABS Neutrophils 6.6 10^3/ul (1.5-7.7); ABS Nucleated RBC 0 10^3/ul; Eosinophil % 0.1 % (0-6); Hematocrit 40 % (35-47); Hemoglobin 12.9 g/dl (12.0-16.0); Lymphocyte % 14.2 % (25-47); Mean Corpuscular HGB Conc 33 g/dl (31-36); Mean Corpuscular Hemoglobin 24 pg (27-31); Mean Corpuscular Volume 75 fL (80-97); Mean Platelet Volume 7.5 um3 (7.4-10.4); Nucleated Red Blood Cells % 0; Platelet Count 239 10^3/ul (150-450); Red Cell Distribution Width 17 % (10.5-15); White Blood Count 8.4 10^3/ul (3.5-10.8)
[2017-11-18 22:13] LABS: EGFR Non-African American 62.6 (>60)
[2017-11-18] MEDS ORDERED: Potassium Chlor TAB* 20 MEQ TAB.ER PO ONE (22:29)
[2017-11-18 23:15] VITALS: BP 116/71
--- NOTE | 2017-11-19 05:20 | ED ---
Art Maxwell Jade, scribed for Justin Mariee MD on 11/18/17 at 2134 . GI/ HPI - HPI Summary HPI Summary: Pt is a 47 y/o female who presents to the ED c/o N/V/D. She has had watery diarrhea for 2 days, and today also started to have N/V. Pt also complains of cramping abdominal pain 7/10 in severity, and decreased urinary frequency. Pt denies any dizziness or bloody stool. She denies any recent antibiotics, travel , working with animals, or exposure to a similar illness. PMHx of HTN but not IBS. No PSHx of abdominal surgery other than a tubal ligation. Pt is a smoker. - History of Current Complaint Chief Complaint: EDNauseaVomitDiarrh Time Seen by Provider: 11/18/17 21:27 Stated Complaint: VOMITTING/DIAHREA Hx Obtained From: Patient Hx Last Menstrual Period: 02/03/17 Onset/Duration: Started Days Ago - 2, Worse Since Timing: Constant Current Severity: Moderate Pain Intensity: 7 Location of Pain: Diffuse - Abdomen Pain Characteristics: Cramping Associated Signs and Symptoms: Positive: Nausea, Vomiting, Diarrhea. Negative: Dizziness, Blood-Streaked Stool, Black Tarry Stool, Bright Red Blood w/Stool, Blood w/Stool Aggravating Factor(s): Nothing Alleviating Factor(s): Nothing - Additional Pertinent History Primary Care Physician: [id number] - Allergy/Home Medications Allergies/Adverse Reactions: Allergies Allergy/AdvReac Type Severity Reaction Status Date / Time Penicillins Allergy Vomiting Verified 11/18/17 21:24 PMH/Surg Hx/FS Hx/Imm Hx Cardiovascular History: Reports: Hx Hypertension Respiratory History: Reports: Hx Chronic Obstructive Pulmonary Disease (COPD), Hx Pneumonia GI History: Denies: Hx Irritable Bowel Sensory History: Denies: Hx Contacts or Glasses, Hx Hearing Aid Opthamlomology History: Denies: Hx Contacts or Glasses - Cancer History Hx Chemotherapy: No Hx Radiation Therapy: No - Surgical History Surgery Procedure, Year, and Place: RIGHT ANKLE FX REPAIR, TUBAL LIGATION - Immunization History Date of Tetanus Vaccine: Up to date Date of Influenza Vaccine: None Infectious Disease History: No Infectious Disease History: Denies: History Other Infectious Disease, Traveled Outside the [place] in Last 30 Days - Family History Known Family History: Negative: Cardiac Disease - [place], Blood Disorder - Blood clot - Social History Alcohol Use: Occasionally Alcohol Amount: 4-5 drinks/ week Substance Use Type: Reports: None Hx Tobacco Use: Yes Smoking Status (MU): Current Every Day Smoker Type: Cigarettes Amount Used/How Often: 1/2 PPD Review of Systems Gastrointestinal: Other - NEGATIVE: Bloody stool Positive: Vomiting, Diarrhea, Nausea Neurological: Negative - Dizziness All Other Systems Reviewed And Are Negative: Yes Physical Exam - Summary Physical Exam Summary: Appearance: Well appearing, no pain distress Skin: warm, dry, reflects adequate perfusion Head/face: normal Eyes: EOMI, ESTELLE ENT: normal Neck: supple, non-tender Respiratory: breath sounds present, mild expiratory wheezes occasionally on left Cardiovascular: pulses symmetrical, tachycardic but regular rhythm Abdomen: non-tender, soft. No CVA tenderness. Bowel Sounds: present Musculoskeletal: normal, strength/ROM intact Neuro: normal, sensory motor intact, A&Ox3 Triage Information Reviewed: Yes Vital Signs On Initial Exam: Initial Vitals Temp Pulse Resp BP Pulse Ox 99.7 F 112 18 153/98 97 11/18/17 20:02 11/18/17 20:02 11/18/17 20:02 11/18/17 20:02 11/18/17 20:02 Vital Signs Reviewed: Yes Diagnostics - Vital Signs Vital Signs Temp Pulse Resp BP Pulse Ox 11/18/17 20:02 99.7 F 112 18 153/98 97 - Laboratory Lab Results: Lab Results 11/18/17 11/18/17 11/18/17 Range/Units 21:45 21:45 21:45 WBC 8.4 (3.5-10.8) 10^3/ul RBC 5.30 (4.00-5.40) 10^6/ul Hgb 12.9 (12.0-16.0) g/dl Hct 40 (35-47) % MCV 75 L (80-97) fL MCH 24 L (27-31) pg MCHC 33 (31-36) g/dl RDW 17 H (10.5-15) % Plt Count 239 (150-450) 10^3/ul MPV 7.5 (7.4-10.4) um3 Neut % (Auto) 79.0 (38-83) % Lymph % (Auto) 14.2 L (25-47) % Starke % (Auto) 6.4 (0-7) % Eos % (Auto) 0.1 (0-6) % Baso % (Auto) 0.3 (0-2) % Absolute Neuts (auto) 6.6 (1.5-7.7) 10^3/ul Absolute Lymphs (auto) 1.2 (1.0-4.8) 10^3/ul Absolute Monos (auto) 0.5 (0-0.8) 10^3/ul Absolute Eos (auto) 0 (0-0.6) 10^3/ul Absolute Basos (auto) 0 (0-0.2) 10^3/ul Absolute Nucleated RBC 0 10^3/ul Nucleated RBC % 0 Sodium 130 L (135-145) mmol/L Potassium 3.0 L (3.5-5.0) mmol/L Chloride 95 L (101-111) mmol/L Carbon Dioxide 26 (22-32) mmol/L Anion Gap 9 (2-11) mmol/L BUN 5 L (6-24) mg/dL Creatinine 0.96 H (0.51-0.95) mg/dL Est GFR ( Amer) 75.7 (>60) Est GFR (Non-Af Amer) 62.6 (>60) BUN/Creatinine Ratio 5.2 L (8-20) Glucose 128 H (70-100) mg/dL Calcium 9.2 (8.6-10.3) mg/dL Total Bilirubin 0.30 (0.2-1.0) mg/dL AST 24 (13-39) U/L ALT 23 (7-52) U/L Alkaline Phosphatase 64 (34-104) U/L Total Protein 7.2 (6.4-8.9) g/dL Albumin 3.6 (3.2-5.2) g/dL Globulin 3.6 (2-4) g/dL Albumin/Globulin Ratio 1.0 (1-3) Lipase < 10 L (11.0-82.0) U/L Urine Color Yellow Urine Appearance Cloudy Urine pH 6.0 (5-9) Ur Specific [place] 1.018 (1.010-1.030) Urine Protein 1+(30 mg/dl) A (Negative) Urine Ketones Negative (Negative) Urine Blood 1+ A (Negative) Urine Nitrate Negative (Negative) Urine Bilirubin Negative (Negative) Urine Urobilinogen Negative (Negative) Ur Leukocyte Esterase Negative (Negative) Urine WBC (Auto) Absent (Absent) Urine RBC (Auto) Trace(0-2/hpf) (Absent) Ur Squamous Epith Cells Present A (Absent) Urine Bacteria Absent (Absent) Urine Glucose Negative (Negative) Result Diagrams: 11/18/17 21:45 11/18/17 21:45 Lab Statement: Any lab studies that have been ordered have been reviewed, and results considered in the medical decision making process. Re-Evaluation - Re-Evaluation First Eval Re-Evaluation Time: 22:31 Change: Improved Comment: Pt is feeling better. GIGU Course/Dx - Course Course Of Treatment: A show with nausea vomiting and watery diarrhea. No recent antibiotic use or known exposures. 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 Treated with IV fluids, Benadryl/Reglan with relief. Stool was obtained for C. difficile, culture and leukocytes. She'll follow up closely with her primary care physician. - Diagnoses Differential Diagnoses - Female: Other - Diverticulitis, gastroenteritis, dehydration, dysentery Provider Diagnoses: Hypokalemia, Gastroenteritis, Hypertension Discharge - Sign-Out/Discharge Documenting (check all that apply): Discharge/Admit/Transfer - Discharge - Discharge Plan Condition: Improved Disposition: HOME Prescriptions: Promethazine TAB* [Phenergan Tab*] 25 mg PO Q6H PRN #20 tab PRN Reason: Nausea Patient Education Materials: Gastroenteritis (ED) Referrals: Tao Malcolm MD [Primary Care Provider] - Additional Instructions: [place] diet, eat bananas. You potassium was slightly low. Have your doctor recheck you for this and for elevated blood pressure in the next 1-2 days. Drink plenty of fluids. Gatorade G2 may help. Return if worse, fevers, new symptoms or other concerns. Stool testing will take a few days to come back. We will call you with any positive results. - Billing Disposition and Condition Condition: IMPROVED Disposition: Home The documentation as recorded by the Art willett Jade accurately reflects the service I personally performed and the decisions made by , Justin Mariee MD.
--- NOTE | 2017-11-19 06:38 | PN ---
Progress Note - Progress Note Date of Service: 11/19/17 Note: patient preliminary stool results show negative c diff.and positive fecal lactoferrin. will wait for final culture.
--- NOTE | 2017-11-20 13:46 | ED ---
Re-Evaluation - Re-Evaluation First Eval Re-Evaluation Time: 22:31 Change: Improved Comment: Pt is feeling better. Course/Dx - Course Course Of Treatment: Final stool culture is positive for salmonella. The health department will be notified. I have notified the patient. Antibiotic treatment is not necessary, she has none of the comorbidities that necessitate antibiotic treatment. - Diagnoses Provider Diagnoses: Hypokalemia, Gastroenteritis, Hypertension, Salmonella Discharge - Sign-Out/Discharge Documenting (check all that apply): Post-Discharge Follow Up - Discharge Plan Condition: Improved Disposition: HOME Prescriptions: Promethazine TAB* [Phenergan Tab*] 25 mg PO Q6H PRN #20 tab PRN Reason: Nausea Patient Education Materials: Gastroenteritis (ED) Referrals: Tao Malcolm MD [Primary Care Provider] - Additional Instructions: [place] diet, eat bananas. You potassium was slightly low. Have your doctor recheck you for this and for elevated blood pressure in the next 1-2 days. Drink plenty of fluids. Gatorade G2 may help. Return if worse, fevers, new symptoms or other concerns. Stool testing will take a few days to come back. We will call you with any positive results. - Billing Disposition and Condition Condition: IMPROVED Disposition: Home
== END 2017-11-18 23:15 | disposition home or self-care (01) ==
LOC: ED 19:53
DX: A02.0 Salmonella enteritis (principal); E87.6 Hypokalemia; I10 Essential (primary) hypertension; F17.210 Nicotine dependence, cigarettes, uncomplicated; Z88.0 Allergy status to penicillin
CPT/HCPCS: 36415; 80053; 81003; 81015; 83630; 83690; 85025; 87045; 87046; 87077; 87493; 87899; 96374; 96375; 99283; A9270-GY; J1200; J2765

== ENCOUNTER 2018-02-24 08:40 | Inpatient (IN) | payer SELFPAY ==
[2018-02-24] MEDS ORDERED: Aspirin 81 mg CHEW TAB* 81 MG TAB.CHEW PO ONE (08:52)
[2018-02-24] MEDS ORDERED: Aspirin 81 mg CHEW TAB* 81 MG TAB.CHEW ONE (08:54)
[2018-02-24] MEDS ORDERED: Nitroglycerin TAB 0.4 MG* 0.4 MG TAB ONE (08:54)
[2018-02-24] MEDS: Nitroglycerin TAB 0.4 MG* 0.4 MG TAB SL PRN ×4 (08:55→10:41)
--- NOTE | 2018-02-24 09:01 | ED ---
HPI Chest Pain - HPI Summary HPI Summary: Patient is a 47 y/o female who presents to the ED c/o sharp CP. The pain began 4 hours ago, is rated an 8/10 in pain, and fluctuates in intensity. It radiates to both her arms, but does not radiate to her jaw. She also c/o N/V, but denies any abdominal pain or leg pain. Patient has HTN, but does not have DM, HLD, AZ, or any other heart issues. Patient denies any FHx of DM, HTN, HLD, or AZ. She has been smoking ppd for a long time. - History of Current Complaint Chief Complaint: EDChestWallPain Hx Obtained From: Patient Hx Last Menstrual Period: 02/03/17 Onset/Duration: Started Hours Ago - 4, Still Present Timing: Constant - Fluctuating in intensity Current Severity: Severe Pain Intensity: 8 Pain Scale Used: 0-10 Numeric Chest Pain Location: Diffuse Chest Pain Radiates: Yes Chest Pain Radiates To:: Arm - Bilateral Character: Sharp/Stabbing Aggravating Factor(s): Nothing Alleviating Factor(s): Nothing Associated Signs and Symptoms: Positive: Chest Pain, Nausea, Vomiting. Negative : Abdominal Pain, Other: - Leg pain - Additional Pertinent History Primary Care Physician: [id number] - Allergy/Home Medications Allergies/Adverse Reactions: Allergies Allergy/AdvReac Type Severity Reaction Status Date / Time Penicillins Allergy Vomiting Verified 11/18/17 21:24 Home Medications: Home Medications Benazepril HCl 1 tab PO DAILY 02/24/18 [History Confirmed 02/24/18] Hydrochlorothiazide TAB* [Hydrodiuril TAB*] 1 tab PO DAILY 02/24/18 [History Confirmed 02/24/18] PMH/Surg Hx/FS Hx/Imm Hx Endocrine/Hematology History: Denies: Hx Diabetes Cardiovascular History: Reports: Hx Hypertension Denies: Hx Hypercholesterolemia Respiratory History: Reports: Hx Chronic Obstructive Pulmonary Disease (COPD), Hx Pneumonia GI History: Denies: Hx Irritable Bowel Sensory History: Denies: Hx Contacts or Glasses, Hx Hearing Aid Opthamlomology History: Denies: Hx Contacts or Glasses - Cancer History Hx Chemotherapy: No Hx Radiation Therapy: No - Surgical History Surgery Procedure, Year, and Place: RIGHT ANKLE FX REPAIR, TUBAL LIGATION - Immunization History Date of Tetanus Vaccine: Up to date Date of Influenza Vaccine: None Infectious Disease History: No Infectious Disease History: Denies: History Other Infectious Disease, Traveled Outside the [place] in Last 30 Days - Family History Known Family History: Negative: Cardiac Disease - [place], Hypertension, Diabetes, Blood Disorder - Blood clot - Social History Alcohol Use: Occasionally Alcohol Amount: 4-5 drinks/ week Hx Substance Use: No Substance Use Type: Reports: None Hx Tobacco Use: Yes Smoking Status (MU): Current Every Day Smoker Type: Cigarettes Amount Used/How Often: 1/2 PPD Review of Systems Positive: Chest Pain Positive: Vomiting, Nausea. Negative: Abdominal Pain Negative: Myalgia - Leg pain All Other Systems Reviewed And Are Negative: Yes Physical Exam - Summary Physical Exam Summary: VITAL SIGNS: Reviewed. GENERAL: Patient is a well-developed and nourished FEMALE who is in some distress secondary to the chest pain. Patient is not in any acute respiratory distress. HEAD AND FACE: No signs of trauma. No ecchymosis, hematomas or skull depressions. No sinus tenderness. EYES: PERRLA, EOMI x 2, No injected conjunctiva, no nystagmus. EARS: Hearing grossly intact. Ear canals and tympanic membranes are within normal limits. MOUTH: Oropharynx within normal limits. NECK: Supple, trachea is midline, no adenopathy, no JVD, no carotid bruit, no c- spine tenderness, neck with full ROM. CHEST: Symmetric, no tenderness at palpation LUNGS: Clear to auscultation bilaterally. No wheezing or crackles. CVS: Regular rate and rhythm, S1 and S2 present, no murmurs or gallops appreciated. ABDOMEN: Soft, non-tender. No signs of distention. No rebound no guarding, and no masses palpated. Bowel sounds are normal. EXTREMITIES: FROM in all major joints, no edema, no cyanosis or clubbing. NEURO: Alert and oriented x 3. No acute neurological deficits. Speech is normal and follows commands. SKIN: Dry and warm Triage Information Reviewed: Yes Vital Signs On Initial Exam: Initial Vitals Temp Pulse Resp BP Pulse Ox 98.1 F 102 16 154/92 100 02/24/18 08:40 02/24/18 08:40 02/24/18 08:40 02/24/18 08:40 02/24/18 08:40 Vital Signs Reviewed: Yes Diagnostics - Vital Signs Vital Signs Temp Pulse Resp BP Pulse Ox 02/24/18 08:40 98.1 F 102 16 154/92 100 - Laboratory Result Diagrams: 02/25/18 07:48 02/24/18 19:45 Lab Statement: Any lab studies that have been ordered have been reviewed, and results considered in the medical decision making process. - Radiology CXR Xray Interpretation: No Acute Changes - Stigmata of obstructive lung disease. No acute pulmonary or cardiac process evident. ED physician reviewed radiology report. Radiology Interpretation Completed By: Radiologist - EKG 8:47 Cardiac Rate: NL - 82 bpm EKG Rhythm: Sinus Rhythm EKG Interpretation: ST depression in I, II, V4-V6, T wave inversion in ABF 8:55 Cardiac Rate: Tachycardia - 100 bpm EKG Rhythm: Sinus Tachycardia EKG Interpretation: ST depression in I, II, III, ABF, B4-B6 consistent with profound ischemia Chest Pain Course/Dx - Course Assessment/Plan: Patient is a 47 y/o female who presents to the ED c/o susanne VILLELA. The pain began 4 hours ago, is rated an 8/10 in pain, and fluctuates in intensity. It radiates to both her arms, but does not radiate to her jaw. She also c/o N/V, but denies any abdominal pain or leg pain. Patient has HTN, but does not have DM, HLD, AZ, or any other heart issues. Patient denies any FHx of DM, HTN, HLD, or AZ. She has been smoking ppd for a long time.. EKG is concerning for diffuse anemia and discussed the EKG with Dr. Nogueira. Since there is no ST elevations he recommends medical treatment. Blood work without any significant abnormality except for potassium level of 3, chloride 94, glucose 136, lactic acid is 2.2, AST 47 AST 56 CK-MB of 9.7 and troponin of 0. 0.8. Chest x-ray impression: Stigmata for obstructive lung disease. No acute pulmonary or cardiac process evident. In the ED course the patient was given IV fluids, nitroglycerin sublingual, aspirin and Lopressor. The patient also was given potassium chloride for the hypokalemia. After the nitroglycerin the chest pain has decreased from 8 to a 2. The patient is much more comfortable and the chest pain has improved. He since that the patient had a NONSTEMI. At this time I discussed my physical exam, findings and test results with Dr. Yun who accepted the patient for admission. Patient is hemodynamically stable. After the patient was admitted to Dr. Luu the patient reports that she's having aching in the chest pain. Therefore the patient was given heparin , morphine for the pain. Patient was also placed in a nitroglycerin drip. After medications she is given better however she seems to be critical. Dr. Yun at bedside now and he will be admitted to the ICU and he will be consulting cardiology. - Chest Pain Differential Diagnosis/HQI/PQRI: Acute [place], ACS, Angina, CHF, Chest Wall, GI Disease, Lower Respiratory Infection, Pulmonary Edema - Diagnoses Provider Diagnoses: Non-STEMI (non-ST elevated myocardial infarction) - Provider Notifications Discussed Care Of Patient With: Rogerio Yun Time Discussed With Above Provider: 10:01 Instructed by Provider To: Other - Dr. Yun accepts patient for admission. At 8:[address] Nogueira who reviewed the EKG. He recommends just medical treatment at this time. - Critical Care Time Critical Care Time: 75-104 min Discharge - Sign-Out/Discharge Documenting (check all that apply): Patient Departure - Admit - Discharge Plan Condition: Stable Disposition: ADMITTED TO [facility] - Billing Disposition and Condition Condition: STABLE Disposition: Admitted to [facility] - Attestation Statements Document Initiated by Aure: Yes Documenting Scribe: Catia Cordova Provider For Whom Aure is Documenting (Include Credential): Tyrone Resendez MD Scribe Attestation: Catia Maxwell, scribed for Tyrone Resendez MD on 02/25/18 at 0939. Scribe Documentation Reviewed: Yes Provider Attestation: The documentation as recorded by the Catia willett accurately reflects the service I personally performed and the decisions made by me, Tyrone Resendez MD
[2018-02-24 09:04] LABS: Hematocrit 35 % (35-47); Hemoglobin 11.3 g/dl (12.0-16.0); Mean Corpuscular HGB Conc 33 g/dl (31-36); Mean Corpuscular Hemoglobin 23 pg (27-31); Mean Corpuscular Volume 71 fL (80-97); Mean Platelet Volume 7.1 um3 (7.4-10.4); Platelet Count 306 10^3/ul (150-450); Red Blood Count 4.88 10^6/ul (4.00-5.40); Red Cell Distribution Width 18 % (10.5-15); White Blood Count 4.6 10^3/ul (3.5-10.8)
[2018-02-24] MEDS ORDERED: NS 0.9% 1000 ML*IV.FLUID IV ONE (09:05)
[2018-02-24 09:09] LABS: INR 1.06 (0.77-1.02)
[2018-02-24 09:21] LABS: EGFR Non-African American 80.7 (>60)
--- NOTE | 2018-02-24 09:27 | RAD ---
Indication: Chest pain. COPD. Tobacco use. Comparison: February 03, 2017 Technique: Upright AP 0907 hours Report: Elevated lung volumes and both diffuse mild prominence of the interstitial markings and patchy rarefaction of the mid to upper lung zone interstitial markings without significant change. No focal pulmonary lesion evident. Negative for pleural effusion or pneumothorax. The heart, pulmonary vasculature, and mediastinal contours are unremarkable. IMPRESSION: #. Stigmata of obstructive lung disease. No acute pulmonary or cardiac process evident.
[2018-02-24] MEDS ORDERED: Potassium Chlor TAB* 20 MEQ TAB.ER PO ONE ×2 (10:00→21:30)
[2018-02-24] MEDS ORDERED: Metoprolol Tartrate TAB* 25 MG PO ONE (10:00)
[2018-02-24 10:06] LABS: ABS Basophils 0 10^3/ul (0-0.2); ABS Eosinophils 0 10^3/ul (0-0.6); ABS Lymphocytes 1.4 10^3/ul (1.0-4.8); ABS Monocytes 0.3 10^3/ul (0-0.8); ABS Neutrophils 2.8 10^3/ul (1.5-7.7); ABS Nucleated RBC 0 10^3/ul; Eosinophil % 0.6 % (0-6); Lymphocyte % 30.6 % (25-47); Nucleated Red Blood Cells % 0.1
[2018-02-24] MEDS ORDERED: Metoprolol Tartrate IV* 1 MG/ML 5 ML VIAL ONE (10:14)
[2018-02-24] MEDS: Metoprolol Tartrate IV* 1 MG/ML 5 ML VIAL IV ONE ×2 (10:15→10:16)
[2018-02-24] MEDS: Metoprolol Tartrate IV* 1 MG/ML 5 ML VIAL IV SCH ×3 (10:16→10:55)
--- NOTE | 2018-02-24 10:36 | ADMNOTE ---
Subjective Date of Service: 02/24/18 Interval History: ADMISSION HISTORY AND PHYSICAL EXAM: Allergies Allergy/AdvReac Type Severity Reaction Status Date / Time Penicillins Allergy Vomiting Verified 11/18/17 21:24 Home Medications Medication Instructions Recorded Confirmed Type Promethazine TAB* [Phenergan Tab*] 25 mg PO Q6H PRN #20 tab 11/18/17 02/24/18 Rx Benazepril HCl 1 tab PO DAILY 02/24/18 02/24/18 History Hydrochlorothiazide TAB* 1 tab PO DAILY 02/24/18 02/24/18 History [Hydrodiuril TAB*] HPI: The patient was in her usual state of health until 1 AM today. She was awoke by chest pain. It radiated to both arms. She had diaphoresis, nausea and emesis x 4. The pain lasted hours, subsided and came back in the ED. It is now level 5/10. 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 Family History: Findings - HTN Social History: Unchanged from Admission - Smoker. No alcohol abuse. 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 Lives with her who is her SDM. He does not smoke. Past Medical History: Findings - HTN, BTL, ankle sx. Review of Systems - Measurements Intake and Output: Intake and Output Last 24 Hours 02/22/18 02/23/18 02/24/18 02/25/18 06:59 06:59 06:59 06:59 Intake Total 1000 Balance 1000 Weight 234 lb Intake: IV Fluids 1000 - Review of Systems Constitutional Symptoms: Negative: Weight Gain, Weight Loss, Weakness, Fatigue, Fever, Night Sweats, Unexplained Falls, Other Dermatology: Positive: Normal HEENT: Positive: Normal Eyes: Positive: Normal Thyroid: Positive: Normal Pulmonary: Positive: Normal Cardiology: Positive: Chest Pain Gastroenterology: Positive: Nausea, Vomiting Genital - Urinary: Positive: Normal Musculoskeletal: Negative: Joint Pain, Joint Stiffness, Arthritis, Osteoporosis, Low Back Pain , Sciatica, Joint Deformities, Kyphoscoliosis, Other Endocrinology: Positive: Normal Neurology: Positive: Normal Psychiatry: Positive: Normal Allergic/Immunologic: Negative: Hx Anaphylaxis, Hx Angioedema, Hx Environmental, Hx Seasonal, Athsma, Hx HIV, Immunocompromise, Swollen Glands LymphNodes, Other Objective Active Medications: Atorvastatin Calcium (Lipitor*) 80 mg PO 1700 NATALIA Metoprolol Tartrate (Lopressor Iv*) 5 mg IV Q5M NATALIA Stop: 02/24/18 11:11 Last Admin: 02/24/18 10:16 Dose: 5 mg Nitroglycerin (Nitroglycerin Tab 0.4 Mg*) 0.4 mg SL Q5M PRN PRN Reason: ANGINA Last Admin: 02/24/18 09:12 Dose: 0.4 mg Vital Signs - 8 hr 02/24/18 02/24/18 02/24/18 08:40 08:45 08:46 Temperature 98.1 F Pulse Rate 102 109 106 Respiratory 16 18 Rate Blood Pressure 154/92 153/95 (mmHg) O2 Sat by Pulse 100 100 Oximetry 02/24/18 02/24/18 02/24/18 09:00 09:05 09:07 Temperature Pulse Rate 108 98 88 Respiratory 12 15 17 Rate Blood Pressure 93/71 104/64 (mmHg) O2 Sat by Pulse 100 96 95 Oximetry 02/24/18 02/24/18 02/24/18 09:12 09:16 09:46 Temperature Pulse Rate 93 90 96 Respiratory 12 12 19 Rate Blood Pressure 128/78 114/64 139/84 (mmHg) O2 Sat by Pulse 94 95 100 Oximetry 02/24/18 10:00 Temperature Pulse Rate 85 Respiratory 12 Rate Blood Pressure (mmHg) O2 Sat by Pulse 99 Oximetry Oxygen Devices in Use Now: None Appearance: Alert, sitting up on ED stretcher. Looks uncomfortable. Eyes: No Scleral Icterus Neck: NL Appearance and Movements; NL JVP, No Thyroid Enlargement, Masses Respiratory: Symmetrical Chest Expansion and Respiratory Effort, Clear to Auscultation, Clear to Percussion Cardiovascular: NL Sounds; No Murmurs; No JVD, RRR, No Edema, - Abdominal: NL Sounds; No Tenderness; No Distention, No Hepatosplenomegaly, - Extremities: No Edema, No Clubbing, Cyanosis, - Skin: No Rash or Ulcers, No Nodules or Sclerosis, - Neurological: Alert and Oriented x 3, NL Sensation Result Diagrams: 02/24/18 08:51 02/24/18 19:45 Assess/Plan/Problems-Billing Assessment: - Patient Problems (1) ACS (acute coronary syndrome) Current Visit: Yes Status: Acute Code(s): I24.9 - ACUTE ISCHEMIC HEART DISEASE, UNSPECIFIED SNOMED Code(s): 557633446 Comment: Clinically acute NH. ASA, IV metoprolol 5 mg x 3, MS 4 mg IV, NTG SL x 3 and drip, heparin with bolus starting, high dose statin. ICU care. Dr. Jackson to see. (2) Hypokalemia Current Visit: Yes Status: Acute Code(s): E87.6 - HYPOKALEMIA SNOMED Code( s): 04371898 Comment: Total 80 meq po KCL ordered. [facility] 02/25. (3) Tobacco abuse Current Visit: Yes Status: Acute Code(s): Z72.0 - TOBACCO USE SNOMED Code( s): 213783729 Comment: Pt advised to quit smoking and avoid second hand smoke. Pt declined NRT. (4) HTN (hypertension) Current Visit: Yes Status: Acute Code(s): I10 - ESSENTIAL (PRIMARY) HYPERTENSION SNOMED Code(s): 90275210 Comment: po bb ordered. (5) Valvular heart disease Current Visit: Yes Status: Acute Comment: Mild to mod MR and mild MS seen on echo.
[2018-02-24] MEDS ORDERED: Morphine INJ* 4 MG/ML 1 ML SYRINGE (NEW SYRINGE VERSION) IV PRN (10:40)
[2018-02-24] MEDS ORDERED: Nitroglycerin TAB 0.4 MG* 0.4 MG TAB SL ONE ×2 (10:40→10:41)
[2018-02-24] MEDS ORDERED: nitroGLYCERIN DRIP* 25,000 MCG/250 ML BTL ONE (10:44)
[2018-02-24] MEDS ORDERED: Morphine INJ* 4 MG/ML 1 ML SYRINGE (NEW SYRINGE VERSION) ONE (10:44)
[2018-02-24] MEDS ORDERED: Heparin DRIP 25,000 UNITS(*) 25,000 UNITS/500 ML BAG IV SCH (10:45)
[2018-02-24] MEDS ORDERED: nitroGLYCERIN DRIP* 25,000 MCG/250 ML BTL IV SCH (11:00)
[2018-02-24] MEDS: Potassium Chlor TAB* 20 MEQ TAB.ER PO SCH ×3 (11:05→20:50)
[2018-02-24] MEDS ORDERED: Heparin VIAL(*) 5000 UNITS/ML VIAL (FIVE THOUSAND) ONE ×2 (12:36→19:17)
[2018-02-24] MEDS: Metoprolol Tartrate TAB* 25 MG PO SCH ×2 (12:50→18:01)
[2018-02-24] MEDS: Atorvastatin* 80 MG TAB PO SCH ×2 (12:50→18:00)
[2018-02-24] MEDS: Ondansetron ODT TAB* 4 MG SL PRN ×3 (15:14→22:20)
[2018-02-24] MEDS: Morphine VIAL* 4 MG/ML VIAL (1 ml vial) IV PRN ×2 (15:14→20:50)
--- NOTE | 2018-02-24 15:21 | CONS ---
CC: Dr. Malcolm, and the hospitalist service * CONSULTATION REPORT: DATE OF CONSULT: 02/24/18 REASON FOR CONSULT: Non-ST elevation myocardial infarction. HISTORY OF PRESENT ILLNESS: Kourtney is a 47-year-old woman who is an active smoker with hypertension and no prior cardiac history. Today, the patient awoke at 1 in the morning with substernal chest discomfort and it did not go away. 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 She would rest and they would go away. It was associated intermittently with shortness of breath, palpitations, dizziness, and feeling hot and cold. The patient denies any recent medication changes. No recent dysuria, hematuria, coughing, or other infectious etiology. PAST MEDICAL HISTORY: The patient has a past medical history of Hypertension COPD. She states she has used inhalers in the past. Pulmonary Hypertension Mitral Stenosis (based on 2017 echo) MEDICATIONS: Outpatient medications include; 1. Benazepril 10 mg a day. 2. Hydrochlorothiazide 25 mg a day. 3. Phenergan 25 mg q.6 hours p.r.n. ALLERGIES: She is allergic to PENICILLIN. FAMILY HISTORY: Her parents are both alive and she says she thinks her mom takes a heart pill, but no clearly identified heart disease, and her father has no history of heart disease. She has siblings who have hypertension, but no coronary disease. 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 No history of recreational drug use ever. REVIEW OF SYSTEMS: See history of present illness. Two months of anginal symptoms postprandially and with exertion. Negative hematuria, dysuria, coughing, fever, or chills; but she gets hot and cold with the events. No change in bowel or bladder habits and all other 14-point review of system is negative. The patient denies having a dyslipidemia or diabetes. The patient denies having Rheumatic fever or any major illness in childhood. PHYSICAL EXAMINATION: On exam, the patient is 5 feet 2 inches, weighs 234 pounds, with a BMI of 43. Vitals: Currently, blood pressure 150/98, oxygen saturation 100% on room air, respiratory rate is 13, pulse is ranging 85 to 99. General Appearance: Short, overweight middle-aged woman, appears comfortable , in no acute distress. Psychologically, pleasant and cooperative. Neurologically, awake, alert, and oriented to person, place, and time. Grossly normal sensory and motor function in the upper and lower extremities. Gait not checked. Skin: Warm, dry, fair complexion. No cyanosis or rashes. HEENT: Pupils are equal and round. Mucous membranes moist. Neck: Without increased JVP appreciated. No thyromegaly or lymphadenopathy. Breath sounds were diminished with some fine inspiratory and expiratory wheezing. Coronary: S1 and S2 regular. 2/6 low-pitched pansystolic murmur heard at the apex (per patient, old). Abdomen: Overweight, active bowel sounds, soft, no epigastric discomfort, no hepatomegaly. Lower extremities are warm and free of edema and distal pulses hard to palpate. Femoral pulses palpable and free of bruise. Radial pulses are strong and symmetrical. DIAGNOSTIC STUDIES/LAB DATA: Labs: White count 4.6, hematocrit 45, mean cell volume low at 71. INR 1.06, PTT 28.4. Sodium 135, potassium 3.0, chloride 94, bicarb 31, BUN 5, creatinine 0.77, glucose 136, lactic acid 2.2. AST 47, ALT 56. CPK 154 with increased MB fraction of 9.7, and troponin 0.18. TSH 1.94. Beta hCG 1.34 (negative). BNP 75. ECG on arrival at 8:47 this morning shows normal sinus rhythm, 82 beats a minute , QRS axis +15, normal AV conduction. QRS is slightly widened with nonspecific changes. She has marked ST depression in lead II; mild ST depression, aVF; and ST depression and inverted T-waves, I, aVL, and lateral leads V4 through V6. She had a single PVC. Mildly poor R-wave progression. Repeat EKG at 8:55 today , this will be ECG #2, sinus tachycardia, 100 beats a minute, ST depression in the inferior lateral leads, more pronounced; and EKG #3 at 8:56 shows sinus tachycardia, 108 beats a minute, again very pronounced inferior ST depression. This right-sided leads do not show significant ST elevation. Chest x-ray reported as stigmata of obstructive lung disease with no acute pulmonary or cardiac process. ASSESSMENT AND PLAN: In summary, Kourtney Trevino is a 47-year-old woman presenting with a good story for crescendo angina with atherosclerotic risk associated with active smoking, hypertension, and possible family history of coronary disease with her mother; and EKG changes concerning for circumflex disease, possible lateral wall ischemia. The patient has received beta andria in the emergency room, aspirin, and is on a nitroglycerin drip, which I concur. I think we need to get her heart rate lower, but with wheezing, she may be someone who is better served with Cardizem or atenolol as opposed to metoprolol. I agree with high dose statin and I have added a lipid panel to evaluate her lipids. I agree with correction of her potassium. I think Kourtney needs to go to the collaborating supervising physician, but as she is chest pain free now, I do not feel we need to do it urgently. I can concur with the heparin drip planned. I will discuss additional Plavix or Brilinta with Interventional Cardiology. We are going to get an echo to follow up on her wall motion as well as her murmur in the mitral area. Her low mean cell volume is concerning in that it may represent iron-deficiency anemia and if there is a GI source, this could impact her ability to be on long - term antiplatelet agent, and recommending we should get 3 guaiacs as well as iron studies. Additional recommendations will be made pending her clinical course and response to the above measures. For chronic obstructive pulmonary disease and wheezing, either nebulizers or inhalers may be of benefit, Xopenex may be a better choice, but I think we need to ensure she is getting good airflow. Thank you for allowing me to assist in this nice woman's care. Addendum: echo 2017 showed mild to moderate mitral stenosis, MR and PA pressure in the 70's. Echo 02/23/2018 showed focal wall motion abnormality at the apex in the septum and inferior wall, moderate to severe MS, moderate to severe MR, PA pr 78 mmHg. [id number]/[facility] #: [id number] [facility] CENTERJoyce
[2018-02-24] MEDS ORDERED: Metoprolol Tartrate TAB* 50 mg PO SCH (21:00)
--- NOTE | 2018-02-24 21:54 | CONS ---
CC: Dr. Malcolm; Dr. Jackson * INTERVENTIONAL CARDIOLOGY CONSULT NOTE: DATE OF CONSULT: 02/24/18 PRIMARY CARE PHYSICIAN: Dr. Malcolm. BAND SEWER: Dr. Jackson. HISTORY OF PRESENT ILLNESS: A 47-year-old female presenting here with inferoposterior non-ST elevation infarct/posterior infarct. I have reviewed [facility]. She was admitted here in 2017, echo during that admission showed normal LV systolic function with decreased RV systolic function , mitral valve area of 2.5 sq. cm and pulmonary hypertension with a PA pressure of 72. She is a smoker, but she is trying to quit, she is down to about a half a pack per day. She has no history of asthma, she has no known history of rheumatic fever. For the past 2 months, she has had fairly typical angina culminating in rest pain early this morning, which prompted her to present to the ER. EKG at [address] depression in I, II, III, aVF, and V2 through V6, superimposed on her preexisting LVH pattern. She was treated medically and became pain-free. Echocardiogram revealed progression of her mitral valve disease with discordant calculations ranging from mitral valve area of 1.2 to 2.4 with a mean valve gradient of 10. She has doming of the mitral valve, RV systolic pressure is 75. She has inferoapical hypokinesis with left atrial enlargement, and preserved LVEF of 50% to 55%. She was initially planned for cath today, but when the progression of mitral valve disease was realized, cath was postponed to allow time to evaluate the progression of mitral valve disease and formulate a therapeutic plan. She reports being more fatigued in the past month, has had exertional dyspnea as well as 2-pillow orthopnea in the past month, but denies peripheral edema or palpitations. PAST MEDICAL HISTORY: Hypertension with apparently at least in the past intermittent noncompliance with medications, COPD. PRE-HOSPITAL MEDICATIONS: 1. HydroDIURIL 1 daily. 2. Benazepril, unknown milligram daily. ALLERGIES: PENICILLIN. FAMILY HISTORY: Negative for premature coronary artery disease. SOCIAL HISTORY: She is a viob-e-ytes-per-day smoker. REVIEW OF SYSTEMS: General: No weight loss. 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 GI: No history of peptic ulcer disease or bleeding. Heme: No history of malignancy or anemia. Endocrine: No history of diabetes. Remainder all negative. PHYSICAL EXAM: She is pain-free. Her most recent BP 116/72, pulse 78. Her lungs are clear without rales or wheezes. JVP is not visibly elevated. Carotid upstrokes are probably normal, although difficult to palpate. I can feel the RV impulse. Her left apical impulse is normal, rhythm is regular. Her S2 is physiologic without a loud P2. I do not hear an opening snap. She has a grade 2 mitral regurg holosystolic murmur. I am not able to hear diastolic rumble even in the left lateral decubitus position; however, her heart sounds are quite distant. Abdomen is obese, nontender, no bruit, I cannot feel the aorta. Liver is not pulsatile. She has no ascites. Radial and femoral pulses are palpable, pedals are diminished but palpable in the posterior tibials. She has no edema. DIAGNOSTIC STUDIES/LAB DATA: EKG as above. Chest x-ray by my review, she has some prominence of the pulmonary arteries, no infiltrate, no overt heart failure. There is no lateral film. The x-ray is somewhat underpenetrated. Her hemoglobin is 11.3 with an MCV of 71, she has had microcytosis since October of 2016, reports heavy menses. BMP notable for sodium of 130, low potassium of 3, creatinine 0.96, GFR of 62.6, random blood sugar of 128. Lactate 2.2. First troponin 0.18. Beta hCG is negative. Her LDL is 129 with cholesterol of 189, triglycerides 122, HDL 35.7. BNP normal at 75. IMPRESSION AND PLAN: 1. Non-ST elevation infarct. Her EKG is consistent with a posterior infarct, she had antecedent accelerating angina. I have discussed with her coronary angiography and possible revascularization depending on the findings of the severity of her valve disease and pulmonary hypertension. We discussed the procedure and risks including , myocardial infarction, cerebrovascular accident, bleeding, transfer for bypass grafting, etc. 2. Mitral valve disease. She has mixed mitral stenosis, mitral regurgitation with discrepancy among the calculated severity of the mitral stenosis. She has , by echo, chronic severe pulmonary hypertension, at least in 2017 out of proportion to at that time calculated mitral valve data. Therefore, the differential includes primary pulmonary hypertension. Right heart cath is planned to help differentiate pulmonary hypertension from mitral valve disease versus other causes. I have discussed with her and her family that intervention may not be performed if it appears more likely that she needs surgical correction of her mitral valve. 3. Hypertension. 4. Tobacco use. We will encourage her to continue to attempt to stop smoking. She will have nighttime continuous oximetry tonight to rule out nocturnal desaturation. [id number]/[facility] #: [id number] MTDD
[2018-02-25] MEDS: Metoprolol Tartrate TAB* 25 MG PO SCH ×3 (00:10→12:50)
[2018-02-25 00:11] LABS: Urine Appearance Clear; Urine Color Yellow
[2018-02-25 00:12] LABS: Urine Ketones Negative (Negative); Urine Urobilinogen Negative (Negative)
[2018-02-25 00:13] LABS: Urine Blood Negative (Negative); Urine Protein 1+(30 mg/dL) (Negative)
[2018-02-25] MEDS: Ondansetron ODT TAB* 4 MG SL PRN (02:52)
[2018-02-25] MEDS: Morphine VIAL* 4 MG/ML VIAL (1 ml vial) IV PRN ×2 (02:53→15:14)
[2018-02-25 03:11] LABS: Urine Red Blood Cell Trace(0-2/hpf) (Absent); Urine White Blood Cell Trace(0-5/hpf) (Absent)
[2018-02-25] MEDS ORDERED: NS 0.9% 1000 ML* 1,000 ML IV SCH ×2 (07:00→12:15)
[2018-02-25 08:09] LABS: ABS Basophils 0 10^3/ul (0-0.2); ABS Eosinophils 0.1 10^3/ul (0-0.6); ABS Lymphocytes 1.9 10^3/ul (1.0-4.8); ABS Monocytes 0.4 10^3/ul (0-0.8); ABS Neutrophils 3.8 10^3/ul (1.5-7.7); ABS Nucleated RBC 0 10^3/ul; Eosinophil % 1.6 % (0-6); Hematocrit 29 % (35-47); Hemoglobin 9.3 g/dl (12.0-16.0); Lymphocyte % 30.8 % (25-47); Mean Corpuscular HGB Conc 32 g/dl (31-36); Mean Corpuscular Hemoglobin 23 pg (27-31); Mean Corpuscular Volume 72 fL (80-97); Mean Platelet Volume 7.4 um3 (7.4-10.4); Nucleated Red Blood Cells % 0.1; Platelet Count 247 10^3/ul (150-450); Red Blood Count 4.06 10^6/ul (4.00-5.40); Red Cell Distribution Width 18 % (10.5-15); White Blood Count 6.2 10^3/ul (3.5-10.8)
--- NOTE | 2018-02-25 08:53 | PN ---
Subjective Date of Service: 02/25/18 Interval History: chest pain free heparin stopped this AM prior to cathode builder denies SOB Mild intermittent cough no N/V, LH Family History: Findings - HTN Social History: Unchanged from Admission - Smoker. No alcohol abuse. 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 Lives with her who is her SDM. He does not smoke. Past Medical History: Findings - HTN, BTL, ankle sx. Objective Active Medications: Aspirin (Aspirin 81 Mg Chew Tab*) 81 mg PO DAILY [facility] Atorvastatin Calcium (Lipitor*) 80 mg PO 1700 [facility] Last Admin: 02/24/18 18:00 Dose: Not Given Nitroglycerin/Dextrose (Nitroglycerin Drip*) 25,000 mcg in 250 mls @ 3 mls/hr IV .(Initial Rate) [facility]; Protocol Last Admin: 02/24/18 10:48 Dose: 3 mls/hr Sodium Chloride (Ns 0.9% 1000 Ml*) 1,000 mls @ 100 mls/hr IV .per rate [facility] Last Admin: 02/25/18 06:41 Dose: 100 mls/hr Influenza Virus Vaccine (Fluarix *Quad* 2018-*) 0.5 ml IM .ONCE ONE Stop: 02/25/18 09:01 Metoprolol Tartrate (Lopressor Tab*) 25 mg PO Q8H [facility] Last Admin: 02/25/18 02:58 Dose: Not Given Morphine Sulfate (Morphine Vial*) 4 mg IV Q2H PRN PRN Reason: PAIN Last Admin: 02/25/18 02:53 Dose: 4 mg Nitroglycerin (Nitroglycerin Tab 0.4 Mg*) 0.4 mg SL Q5M PRN PRN Reason: ANGINA Last Admin: 02/24/18 09:12 Dose: 0.4 mg Ondansetron HCl (Zofran Odt Tab*) 4 mg SL Q3H PRN PRN Reason: NAUSEA/VOMITING Last Admin: 02/25/18 02:52 Dose: 4 mg Pneumococcal Polyvalent Vaccine (Pneumococcal Vac 23-Polyvalent*) 0.5 ml IM .ONCE ONE Stop: 02/25/18 09:01 Potassium Chloride (Klor Con Er Tab*) 20 meq PO TID [facility] Last Admin: 02/24/18 20:50 Dose: 20 meq Vital Signs - 8 hr 02/25/18 02/25/1802/25/18 01:00 01:01 01:31 Temperature Pulse Rate 73 77 72 Respiratory 21 14 18 Rate Blood Pressure 105/68 92/60 (mmHg) O2 Sat by Pulse 94 95 95 Oximetry 02/25/18 02/25/18 02/25/18 01:49 02:00 02:05 Temperature Pulse Rate 64 65 65 Respiratory 13 14 16 Rate Blood Pressure 96/63 90/63 92/54 (mmHg) O2 Sat by Pulse 96 95 97 Oximetry 02/25/18 02/25/18 02/25/18 02:30 02:53 03:00 Temperature Pulse Rate 64 68 Respiratory 13 16 15 Rate Blood Pressure 97/66 92/61 (mmHg) O2 Sat by Pulse 95 95 Oximetry 02/25/18 02/25/18 02/25/18 03:30 03:46 04:00 Temperature 97.1 F Pulse Rate 66 64 Respiratory 14 12 Rate Blood Pressure 98/68 (mmHg) O2 Sat by Pulse 94 95 Oximetry 02/25/18 02/25/18 02/25/18 04:01 04:30 05:00 Temperature Pulse Rate 68 74 64 Respiratory 14 17 12 Rate Blood Pressure 90/58 99/64 (mmHg) O2 Sat by Pulse 95 96 94 Oximetry 02/25/18 02/25/18 02/25/18 05:01 05:22 05:31 Temperature Pulse Rate 67 64 Respiratory 13 11 Rate Blood Pressure 103/61 98/68 (mmHg) O2 Sat by Pulse 93 92 95 Oximetry 02/25/18 02/25/18 02/25/18 06:00 06:01 06:31 Temperature Pulse Rate 68 66 70 Respiratory 11 13 17 Rate Blood Pressure 101/66 98/67 (mmHg) O2 Sat by Pulse 92 96 95 Oximetry 02/25/18 02/25/18 02/25/18 07:00 07:01 07:30 Temperature Pulse Rate 69 66 72 Respiratory 16 13 15 Rate Blood Pressure 101/71 101/70 (mmHg) O2 Sat by Pulse 94 93 96 Oximetry 02/25/18 02/25/18 02/25/18 07:46 08:00 08:01 Temperature 97.3 F Pulse Rate 68 68 Respiratory 20 23 Rate Blood Pressure 108/70 (mmHg) O2 Sat by Pulse 91 93 Oximetry 02/25/18 08:31 Temperature Pulse Rate 83 Respiratory 16 Rate Blood Pressure 93/55 (mmHg) O2 Sat by Pulse 97 Oximetry Oxygen Devices in Use Now: None Appearance: sitting up, NAD Eyes: No Scleral Icterus, PERRLA Ears/Nose/Mouth/Throat: NL Teeth, Lips, Gums, Clear Oropharnyx Neck: NL Appearance and Movements; NL JVP, Trachea Midline Respiratory: Symmetrical Chest Expansion and Respiratory Effort, - - scatter rhonchi, no wheeze. rales Cardiovascular: RRR Abdominal: NL Sounds; No Tenderness; No Distention, No Hepatosplenomegaly Lymphatic: No Cervical Adenopathy Extremities: No Edema Skin: No Rash or Ulcers, - - 2+ radial pulses b/l Neurological: Alert and Oriented x 3 Result Diagrams: 02/25/18 07:48 02/24/18 19:45 Microbiology and Other Data: Microbiology 02/24/18 11:30 Nasal Screen MRSA (PCR) - Final Nasal Mrsa Not Detected 02/24/18 11:45 Stool Occult Blood (SHANEL) - Final Stool Assess/Plan/Problems-Billing Assessment: 47 yo F h/o HYN, tob abuse p/w inferoposterior NSTEMI found with pHTN and mixed mitral stenosis/regurgitation - Patient Problems (1) NSTEMI (non-ST elevated myocardial infarction) Comment: left heart cath 02/[address] Nogueira metoprolol atorvastatin (2) Pulmonary hypertension Comment: right heart cath 02/25 overnight pulse ox mean O2 92.5% with longest desat <88% 20 sec - unlikely etiology of pHTN found this admission (3) Tobacco abuse Comment: smoking cessation counseling pt in maintainance (4) DVT prophylaxis Status: Acute Comment: heparin gtt off this AM
[2018-02-25] MEDS ORDERED: Aspirin 81 mg CHEW TAB* 81 MG TAB.CHEW PO SCH (09:00)
[2018-02-25] MEDS ORDERED: Potassium Chlor TAB* 10 MEQ TAB.ER PO SCH (09:00)
[2018-02-25] MEDS ORDERED: Pneumococcal *Vac Polyvalent 0.5 ML VIAL IM ONE (09:00)
[2018-02-25] MEDS ORDERED: Lidocaine 1% INJ* 10 MG/ML 30 ML SDV ONE (09:20)
[2018-02-25] MEDS ORDERED: VERAPAMIL 2.5 MG/ML 2 ML VIAL ** 5 mg/2 ml ONE (09:20)
[2018-02-25] MEDS ORDERED: nitroGLYCERIN DRIP* 25,000 MCG/250 ML BTL ONE (09:20)
[2018-02-25] MEDS ORDERED: Heparin(*) 1000 UNIT/ML 10 ML VIAL CATH LAB IV ONE (09:20)
[2018-02-25] MEDS ORDERED: Heparin 2 UNITS/ML IVPREMIX* 3,000 ML IV ONE (09:20)
[2018-02-25] MEDS ORDERED: Iohexol 350 (CONTRAST) 200 ML MDV IV ONE (09:21)
[2018-02-25] MEDS ORDERED: Midazolam* 1 MG/ML 10 ML VIAL (10 MG) ONE (09:27)
[2018-02-25] MEDS ORDERED: fentaNYL* 50 MCG/ML 2 ML VIAL (100 MCG VIAL) ONE (09:27)
[2018-02-25] MEDS ORDERED: Aspirin 81 mg CHEW TAB* 81 MG TAB.CHEW ONE (09:34)
[2018-02-25] MEDS ORDERED: Nitroglycerin TAB 0.4 MG* 0.4 MG TAB ONE (11:12)
[2018-02-25] MEDS: Potassium Chlor TAB* 20 MEQ TAB.ER PO SCH ×2 (12:50→12:51)
[2018-02-25 16:08] VITALS: BP 111/79
--- NOTE | 2018-02-26 02:39 | DS ---
CC: Tao Malcolm MD * DISCHARGE/TRANSFER SUMMARY: DATE OF ADMISSION: 02/24/18 DATE OF TRANSFER: 02/25/18 DISPOSITION: Discharge to [facility] for higher level of care/CABG with mitral valve replacement. PRIMARY CARE PROVIDER: Tao Malcolm MD PRIMARY DIAGNOSES: 1. Single vessel coronary artery disease of the RCA with good collaterals. 2. Mitral valve disease. 3. Severe stenosis and regurgitation. 4. Pulmonary hypertension. SECONDARY DIAGNOSES: Include: 1. Hypertension. 2. Tobacco abuse. HOME MEDICATIONS: Include: 1. Phenergan 25 mg every 6 hours as needed. 2. Benazepril 1 tab daily. 3. Hydrochlorothiazide 1 tab daily. Those dosages have not been confirmed with her pharmacy. PROCEDURES PERFORMED DURING HOSPITAL STAY: Include left and right heart cath performed by Dr. Nogueira, [facility] on 02/25/18 with preliminary report as follows : Mean pressure RA 15 mmHg, RV 53/13, pulmonary capillary wedge of 34, pulmonary artery 49/29 with a mean of 37, mitral valve mean pressure 17 mmHg with a mitral valve area of 0.92, approximately 3+ MR, EF within normal limits. Left main, LAD, circumflex no significant CAD; RCA 100% as indicated above. HISTORY OF PRESENT ILLNESS AND HOSPITAL COURSE: This is a 47-year-old female with past medical history as outlined above including hypertension, tobacco abuse, pulmonary hypertension, COPD by chart review; however, the patient denies this, is on no home medications, has no exacerbations. She has had _ of typical angina; however, has woken up at 1:00 in the morning with substernal chest discomfort radiating to bilateral arms, presented to the hospital, was found with non-ST elevated myocardial infarction with ST depressions in inferoposteriorly 2, 3, aVF, V5, V6, corresponding elevation in troponin to 21.62 before proceeding to cardiac catheterization with results as indicated above, significant pulmonary hypertension; however, severe mitral valve stenosis with associated mitral regurgitation and single vessel disease. Recommendation is for the patient to be transferred for coronary artery bypass grafting along with replacement of her mitral valve. Of note, prior to her transfer, she did ambulate to the bathroom with return of her chest discomfort, for which she was restarted on nitroglycerin. Additionally, she was given full dose shot of Lovenox prior to her discharge and has maintained complete anticoagulation prior to any intervention or resumption of heparin. The patient was heparinized until prior to her left main heart cath that day. OTHER PERTINENT LABS: Included total cholesterol 162, LDL 114, HDL of 30..9, triglycerides of 85. TSH is 1.94. BUN is 5, creatinine is 0.77. The patient is hypokalemic at 3.0, increased to 3.6 with replacement. Her hemoglobin dropped from 11.3 to 9.3 with hydration and overnight noted to have an MCV of 72 on the day of discharge. There was no evidence of bleeding and her stool occult blood was negative on presentation. She remained hemodynamically stable. Again, transfer to higher level of care for intervention not available at this institution. There are no complications during the course of this hospital stay. FOLLOWUP: 1. Evaluate for CABG and mitral valve repair/replacement. 2. Continue to assistant counsel on smoking cessation. The patient is adamant she will smoke no more. 3. Medication adjustments as needed for ACS. The patient was started on metoprolol as well as atorvastatin and aspirin on her presentation. The patient was counseled she will have a number of new medications at the time of her discharge. Thank you for assisting in the care of this patient. Please do not hesitate to call with any additional questions or concerns or records that you may need. TIME SPENT: Greater than 60 minutes spent on the discharge of the patient, greater than half spent [id number] with the patient. [id number]/[facility] #: [id number] JEM
--- NOTE | 2018-02-27 05:39 | CATH ---
CC: Dr. Malcolm; Dr. Jackson; Dr. Sinha, [place] CATH REPORT: DATE OF SERVICE: 02/25/18. PRIMARY CARE PROVIDER: Dr. Malcolm. PAYROLL SPECIALIST: Dr. Jackson. PROCEDURE: Right heart catheterization, left heart catheterization, bilateral selective coronary cineangiography, right radial and right antecubital access. HISTORY: A 47-year-old female without known history of rheumatic fever, with rheumatic-appearing mitral valve disease with mild stenosis in 2017. She is admitted with a non-ST elevation infarct with post infarct angina, echo now is consistent with progression of a valve disease with a mean mitral valve gradient greater than 10, as well as severe pulmonary hypertension. She was referred for catheterization for hemodynamic evaluation and depending on severity of valve disease, potential coronary revascularization. PROCEDURE ACCESS: Right radial artery. SHEATH: 6F Slender. Right antecubital vein. 5 Serbian exchange with hydrophilic radial wire from an IV. CATHETERS: 5 Flowood-Jahaira, 5F TIG4, 5F pigtail. After arterial venous access, right-sided pressures were recorded. Left-sided pressures were then recorded with a pigtail followed by measurement of simultaneous mitral valve gradient. Thermodilution cardiac output was then obtained in triplicate as well as a-vO2 difference in duplicate for calculation of assumed Caitie cardiac output. LV gram was then performed followed by left- sided pullback after which coronary cineangiography was performed. She had resting angina at the end of the procedure relieved prompted with 1 sublingual nitroglycerin. HEMODYNAMICS: Initial RA mean 15, RV 53/16, wedge mean 34, with a V wave to 49 , PA 52/36, mean 43 with less than 10 mm gradient between wedge and PAD. Saturation was normal. LV 102/16-26 post LV gram, no gradient on pullback. Thermodilution cardiac output 3.9, aortic valve area 0.92 cm sq, overestimated because of the presence of mitral regurgitation. Caitie cardiac output also 3.9 L per minute. ANGIOGRAPHY: LV gram shows preserved LV systolic function with ventricular ectopy, there is at least 2 to 3+ mitral regurgitation, post injection the left atrium remains opacified, suggestive of 3+ MR. Incidentally noted is the calcification of the left and right coronary system. Left main: The left main is normal in size and length, has a nonobstructive distal plaque. LAD: The LAD is small to moderate, extends past apex, the distal LAD is relatively small suggestive of diffuse atherosclerosis without any focal stenosis. The LAD supplies a number of small diagonal branches, has scattered luminal irregularity without significant stenosis. Circumflex: The circumflex is not dominant, moderate, there is a small ramus branch, the proximal circumflex has an extensive 30% stenosis, then supplies a moderate bifurcated posterolateral and to the moderate posterolateral. The circumflex has scattered luminal irregularity without significant stenosis. There are LAD as well as circumflex [id number] collaterals to the distal RCA with filling of RPDA and RPL which appeared to be in continuity. There is reflex of contrast to the acute margin where there is some competitive flow. RCA: The RCA is small, dominant, likely diffusely and severely diseased with proximal luminal irregularity and then subtotal or total occlusion after 2 right ventricular free wall branches. CONCLUSION: 1. Significant single vessel disease with diffuse, nonobstructive atherosclerotic coronary disease. 2. Normal LV systolic function with at least moderately severe MR. 3. Probable moderate MS, in combination with mitral regurgitation resulting in significant pulmonary hypertension with a small component of primary pulmonary arterial hypertension. 4. Successful right radial and right antecubital access. 5. Biventricular elevated filling pressures. 6. Recurrent rest angina post infarct. RECOMMENDATION: Mitral valve replacement and coronary artery bypass grafting. [id number]/[facility] #: [id number] JEM
== END 2018-02-25 17:08 | disposition short-term general hospital (02) | DRG 282 ==
LOC: ED 08:40 → ICU 10:37
PROVIDERS: ADMIT Internal Medicine; ATTEND Internal Medicine
PROC: 4A023N8 Measurement of Cardiac Sampling and Pressure, Bilateral, Percutaneous Approach (ICD-10-PCS; 2018-02-25)
PROC: B2111ZZ Fluoroscopy of Multiple Coronary Arteries using Low Osmolar Contrast (ICD-10-PCS; principal; 2018-02-25 09:30)
DX: I21.4 Non-ST elevation (NSTEMI) myocardial infarction (principal); F17.210 Nicotine dependence, cigarettes, uncomplicated; I10 Essential (primary) hypertension; E87.6 Hypokalemia; I05.2 Rheumatic mitral stenosis with insufficiency; J44.9 Chronic obstructive pulmonary disease, unspecified; I27.20 Pulmonary hypertension, unspecified; I25.119 Atherosclerotic heart disease of native coronary artery with unspecified angina pectoris; Z82.49 Family history of ischemic heart disease and other diseases of the circulatory system; Z98.51 Tubal ligation status; Z88.0 Allergy status to penicillin; Z72.89 Other problems related to lifestyle; Z91.14 Patient's other noncompliance with medication regimen
CPT/HCPCS: 36415; 71045; 80053; 80061; 81003; 81015; 82272; 82550; 82553; 82803; 83605; 83735; 83880; 84132; 84443; 84484; 84702; 85025; 85379; 85610; 85730; 87086; 87641; 90686; 90732; 93005; 93306; 93460; 94762; 99156; 99157; 99285; 99406; A9270-GY; C1887; J1644; J2250; J2270; J3010; J3490

== ENCOUNTER 2018-03-08 17:06 | Observation (INO) | payer SELFPAY ==
[2018-03-08 18:03] LABS: ABS Basophils 0 10^3/ul (0-0.2); ABS Eosinophils 0.1 10^3/ul (0-0.6); ABS Lymphocytes 1.6 10^3/ul (1.0-4.8); ABS Monocytes 0.6 10^3/ul (0-0.8); ABS Neutrophils 8.1 10^3/ul (1.5-7.7); ABS Nucleated RBC 0 10^3/ul; Hematocrit 29 % (35-47); Hemoglobin 9.6 g/dl (12.0-16.0); Lymphocyte % 15.3 % (25-47); Mean Corpuscular HGB Conc 33 g/dl (31-36); Mean Corpuscular Hemoglobin 25 pg (27-31); Mean Corpuscular Volume 76 fL (80-97); Mean Platelet Volume 6.9 um3 (7.4-10.4); Nucleated Red Blood Cells % 0; Platelet Count 490 10^3/ul (150-450); Red Blood Count 3.79 10^6/ul (4.00-5.40); Red Cell Distribution Width 22 % (10.5-15); White Blood Count 10.5 10^3/ul (3.5-10.8)
[2018-03-08 18:20] LABS: EGFR Non-African American 88.6 (>60)
[2018-03-08] MEDS ORDERED: HYDROcodone/ACETAMIN 5-325 MG* 1 TAB PO ONE (18:40)
--- NOTE | 2018-03-08 19:03 | ED ---
Syncope/Near Syncope - HPI Summary HPI Summary: Patient complains of 2 episodes of syncope after coughing spell while sitting down. One episode yesterday evening, 1 episode today. Both episodes witnessed , patient was woken up by immediately and patient was at baseline after being woken up. Denies postictal phase. States progressive cough 1.5 weeks with production of right phlegm. Denies any pain or injury from syncopal episodes. Any other symptoms including fever, sore throat, KWONG, CP, SOB, N/V/D, abdominal pain, change in urine, change in BM. Recent history of CABG 02/26/18. Medical history is HTN. Denies EtOH, drug use. Quit smoking 1 week ago. - History Of Current Complaint Chief Complaint: EDSyncope Time Seen by Provider: 03/08/18 17:33 Hx Obtained From: Patient Onset/Duration: Sudden Onset Timing: Intermittent Episode Lasting Context: Witnessed Activity At Onset: At Rest Associated Head Trauma: No Aggravating Factor(s): Nothing Alleviating Factor(s): Nothing - Risk Factors Cardiac Risk Factors: Hypertension, CAD Risk Factor(s): Coumadin - Allergies/Home Medications Allergies/Adverse Reactions: Allergies Allergy/AdvReac Type Severity Reaction Status Date / Time Penicillins Allergy Vomiting Verified 03/08/18 17:29 PMH/Surg Hx/FS Hx/Imm Hx Endocrine/Hematology History: Reports: Hx Anticoagulant Therapy Denies: Hx Diabetes Cardiovascular History: Reports: Hx Hypertension Denies: Hx Hypercholesterolemia Respiratory History: Reports: Hx Chronic Obstructive Pulmonary Disease (COPD), Hx Pneumonia GI History: Denies: Hx Irritable Bowel Musculoskeletal History: Denies: Hx Arthritis, Hx Osteoporosis Sensory History: Denies: Hx Contacts or Glasses, Hx Hearing Aid Opthamlomology History: Denies: Hx Contacts or Glasses - Cancer History Hx Chemotherapy: No Hx Radiation Therapy: No - Surgical History Surgery Procedure, Year, and Place: RIGHT ANKLE FX REPAIR, TUBAL LIGATION - Immunization History Date of Tetanus Vaccine: Up to date Date of Influenza Vaccine: None Infectious Disease History: No Infectious Disease History: Denies: History Other Infectious Disease, Traveled Outside the [place] in Last 30 Days - Family History Known Family History: Negative: Cardiac Disease - [place], Hypertension, Diabetes, Blood Disorder - Blood clot - Social History Alcohol Use: Occasionally Alcohol Amount: 4-5 drinks/ week Hx Substance Use: No Substance Use Type: Reports: None Hx Tobacco Use: Yes Smoking Status (MU): Current Every Day Smoker Type: Cigarettes Amount Used/How Often: 1/2 PPD Have You Smoked in the Last Year: Yes Review of Systems Constitutional: Negative Eyes: Negative ENT: Negative Cardiovascular: Negative Positive: Cough Gastrointestinal: Negative Genitourinary: Negative Musculoskeletal: Negative Skin: Negative Positive: Syncope Psychological: Normal All Other Systems Reviewed And Are Negative: Yes Physical Exam - Summary Physical Exam Summary: Patient alert and oriented, nontoxic-appearing.Surgical wound clean and dry, no erythema and no purulent discharge. Triage Information Reviewed: Yes Vital Signs On Initial Exam: Initial Vitals Temp Pulse Resp BP Pulse Ox 96.7 F 100 16 123/82 99 03/08/18 17:27 03/08/18 17:27 03/08/18 17:27 03/08/18 17:27 03/08/18 17:27 Vital Signs Reviewed: Yes Appearance: Positive: Well-Appearing Skin: Positive: Warm Head/Face: Positive: Normal Head/Face Inspection Eyes: Positive: Normal Neck: Positive: Supple Respiratory/Lung Sounds: Positive: Clear to Auscultation Cardiovascular: Positive: Normal Abdomen Description: Positive: Nontender Musculoskeletal: Positive: Normal Neurological: Positive: Normal Psychiatric: Positive: Normal AVPU Assessment: Alert - Rosendo Coma Scale Best Eye Response: 4 - Spontaneous Best Motor Response: 6 - Obeys Commands Best Verbal Response: 5 - Oriented Coma Scale Total: 15 Diagnostics - Vital Signs Vital Signs Temp Pulse Resp BP Pulse Ox 03/08/18 17:27 96.7 F 100 16 123/82 99 - Laboratory Lab Results: Lab Results 03/08/18 03/08/18 03/08/18 Range/Units 17:55 17:55 17:55 WBC 10.5 (3.5-10.8) 10^3/ul RBC 3.79 L (4.00-5.40) 10^6/ul Hgb 9.6 L (12.0-16.0) g/dl Hct 29 L (35-47) % MCV 76 L (80-97) fL MCH 25 L (27-31) pg MCHC 33 (31-36) g/dl RDW 22 H (10.5-15) % Plt Count 490 H D (150-450) 10^3/ul MPV 6.9 L (7.4-10.4) um3 Neut % (Auto) 77.4 (38-83) % Lymph % (Auto) 15.3 L (25-47) % Walton % (Auto) 6.0 (0-7) % Eos % (Auto) 1.0 (0-6) % Baso % (Auto) 0.3 (0-2) % Absolute Neuts (auto) 8.1 H (1.5-7.7) 10^3/ul Absolute Lymphs (auto) 1.6 (1.0-4.8) 10^3/ul Absolute Monos (auto) 0.6 (0-0.8) 10^3/ul Absolute Eos (auto) 0.1 (0-0.6) 10^3/ul Absolute Basos (auto) 0 (0-0.2) 10^3/ul Absolute Nucleated RBC 0 10^3/ul Nucleated RBC % 0 Sodium 132 L (135-145) mmol/L Potassium 3.8 (3.5-5.0) mmol/L Chloride 100 L (101-111) mmol/L Carbon Dioxide 26 (22-32) mmol/L Anion Gap 6 (2-11) mmol/L BUN 7 (6-24) mg/dL Creatinine 0.71 (0.51-0.95) mg/dL Est GFR ( Amer) 107.2 (>60) Est GFR (Non-Af Amer) 88.6 (>60) BUN/Creatinine Ratio 9.9 (8-20) Glucose 110 H (70-100) mg/dL Lactic Acid 0.7 (0.5-2.0) mmol/L Calcium 8.8 (8.6-10.3) mg/dL Magnesium 1.9 (1.9-2.7) mg/dL Total Bilirubin 0.30 (0.2-1.0) mg/dL AST 32 (13-39) U/L ALT 43 (7-52) U/L Alkaline Phosphatase 97 (34-104) U/L Troponin I 0.30 H* (<0.04) ng/mL Total Protein 6.5 (6.4-8.9) g/dL Albumin 3.4 (3.2-5.2) g/dL Globulin 3.1 (2-4) g/dL Albumin/Globulin Ratio 1.1 (1-3) TSH Pending Result Diagrams: 03/08/18 17:55 03/08/18 17:55 Lab Statement: Any lab studies that have been ordered have been reviewed, and results considered in the medical decision making process. - Radiology cxr Xray Interpretation: No Acute Changes Radiology Interpretation Completed By: ED Physician - CT cta chest CT Interpretation: No Acute Changes CT Interpretation Completed By: Radiologist - EKG 1 Cardiac Rate: NL EKG Rhythm: Sinus Rhythm ST Segment: Non-Specific Ectopy: None EKG Comparison: No Significant Change Course/Dx Course Of Treatment: Patient complains of 2 episodes of syncope after coughing spell while sitting down. One episode yesterday evening, 1 episode today. Both episodes witnessed, patient was woken up by immediately and patient was at baseline after being woken up. Denies postictal phase. States progressive cough 1.5 weeks with production of right phlegm. Denies any pain or injury from syncopal episodes. Any other symptoms including fever, sore throat, KWONG, CP, SOB, N/V/D, abdominal pain, change in urine, change in BM. Recent history of CABG 02/26/18. Medical history is HTN. Denies EtOH, drug use. Quit smoking 1 week ago. Physical exam:Patient alert and oriented, nontoxic-appearing. Surgical wound clean and dry, no erythema and no purulent discharge. Patient mildly tachycardic. One episode of low SBP at 92. Rising troponins. Elevated platelets 490. EKG today similar to prior. Chest x-ray negative. Hemoglobin 9.6, improved from prior reading of 9.1. Patient had blood transfusion 1 week ago. CTA chest negative for PE. Patient's cardiothoracic surgeon at [facility] was called. Person who was on- call for actual surgeon did not call back. Discussed patient with Dr. Salinas econometrician for cardiology who recommended admit and echo to be performed in the morning. Will admit to hospitalist. - Diagnoses Provider Diagnoses: Syncope Discharge - Sign-Out/Discharge Documenting (check all that apply): Patient Departure - Discharge Plan Condition: Stable Disposition: ADMITTED TO [facility] Referrals: Tao Malcolm MD [Primary Care Provider] - - Billing Disposition and Condition Condition: STABLE Disposition: Admitted to [facility]
[2018-03-08 19:11] LABS: INR 3.22 (0.77-1.02)
[2018-03-08] MEDS ORDERED: NS 0.9% 1000 ML* 1,000 ML IV ONE (21:55)
[2018-03-08] MEDS ORDERED: Iohexol 350* (CONTRAST) 500 ML MDV IV ONE (22:09)
[2018-03-08 22:37] LABS: Urine Appearance Clear; Urine Blood Negative (Negative); Urine Color Yellow; Urine Ketones Negative (Negative); Urine Protein Negative (Negative); Urine Specific Gravity 1.011 (1.010-1.030); Urine Urobilinogen Negative (Negative)
--- NOTE | 2018-03-08 22:55 | RAD ---
EXAM: CT Angiography Chest With Intravenous Contrast EXAM DATE/TIME: 03/08/2018 10:17 PM CLINICAL HISTORY: 47 years old, female; Signs and symptoms; Tachypnea; Additional info: R/O pe, HX of surgery, tachy TECHNIQUE: Axial computed tomographic angiography images of the chest with intravenous contrast using CT angiography protocol. All CT scans at this facility use at least one of these dose optimization techniques: automated exposure control; mA and/or kV adjustment per patient size (includes targeted exams where dose is matched to clinical indication); or iterative reconstruction. Coronal and sagittal reformatted images were created and reviewed. MIP reconstructed images were created and reviewed. CONTRAST: 75 ml of omni 350 administered intravenously. COMPARISON: DX CXR CHEST PA LAT 2 VWS 03/08/2018 5:55 PM FINDINGS: Pulmonary arteries: Pulmonary arteries are well opacified to the subsegmental branches. Normal caliber main pulmonary artery. No filling defects throughout the pulmonary artery tree. Aorta: The aorta demonstrates mild atherosclerotic calcification. Great vessels off aortic arch: Wall thickening of the brachiocephalic, left common carotid, and left subclavian arteries at the origin. Lungs: Compressive atelectasis posterior and lateral bilateral lower lobes. No bronchiectasis, peribronchial thickening, or luminal defects. Pleural space: Moderate bilateral pleural effusions. No pneumothorax. Heart: There is mild atherosclerotic calcification of the coronary arteries. Findings of prior mitral valve repair. Moderate pericardial effusion. No right ventricular collapse. Thyroid: No thyroid nodules. Bones/joints: Recent sternotomy. No fractures. No suspicious bone lesions. Soft tissues: Normal. Lymph nodes: Normal. No enlarged lymph nodes. IMPRESSION: 1. No pulmonary emboli. 2. Postsurgical pericardial and pleural effusions with associated bilateral lower lobe volume loss. No evidence of tamponade. 3. Great vessel wall thickening likely postsurgical. To contact [facility] with a general question: Operations Center - [phone] For direct physician to physician contact: Physician Hotline - [phone] [facility] ([facility] Facility ID #[id number])
[2018-03-09] MEDS ORDERED: HYDROcodone/ACETAMIN 5-325 MG* 1 TAB PO ONE (01:49)
[2018-03-09] MEDS ORDERED: LORazepam INJ* 2 MG/ML 1 ML VIAL IV ONE (02:25)
[2018-03-09] MEDS ORDERED: Acetaminophen TAB* 325 MG PO PRN (02:47)
[2018-03-09] MEDS ORDERED: Al Hydrox/Mg Hydrox/Simet LIQ* 30 ML UDC PO PRN (02:47)
[2018-03-09] MEDS ORDERED: Ondansetron INJ* 2 MG/ML VIAL IV PRN (02:47)
[2018-03-09] MEDS ORDERED: Albuterol HFA INHALER* 8 gm MDI INH PRN (02:50)
[2018-03-09] MEDS ORDERED: Benzonatate CAP* 100 MG PO PRN ×2 (02:51→10:31)
[2018-03-09] MEDS ORDERED: HYDROcodone/ACETAMIN 5-325 MG* 1 TAB PO PRN (02:51)
[2018-03-09] MEDS ORDERED: Zolpidem TAB* 5 MG PO PRN (03:07)
[2018-03-09 06:59] LABS: INR 2.16 (0.77-1.02)
--- NOTE | 2018-03-09 07:43 | RAD ---
INDICATION: Cough COMPARISON: Most recent comparison chest x-rays dated February 24, 2018 TECHNIQUE: PA and lateral views of the chest were obtained. FINDINGS: Postsurgical changes include sternotomy wires and a prosthetic heart valve The heart and mediastinum are normal in size and contour. On the AP view there are bibasilar lung bases linear densities consistent with atelectasis. On the lateral view there is density obscuring the dependent-most posterior lung this most likely corresponds to the density seen at the right lung base on the AP view. More superiorly the lungs are adequately aerated. Visualized bones are normal for the patient's age. There is no radiographic evidence of free air beneath the diaphragm IMPRESSION: POSTERIOR, PROBABLY RIGHT LUNG BASE, CONSOLIDATION WHICH COULD BE PNEUMONIA IN THE CORRECT CLINICAL SETTING. R1
[2018-03-09] MEDS: Mometasone/Formoter 200/5 MDI INH SCH ×2 (08:12→09:03)
[2018-03-09] MEDS ORDERED: Metoprolol Tartrate TAB* 25 MG PO SCH (09:00)
[2018-03-09] MEDS ORDERED: Aspirin 81 mg CHEW TAB* 81 MG TAB.CHEW PO SCH (09:00)
--- NOTE | 2018-03-09 09:01 | HP ---
CC: Dr. Malcolm; Dr. Sinha at [facility] * HISTORY AND PHYSICAL: DATE OF ADMISSION: 03/09/18 TIME OF EVALUATION: 0200. PRIMARY CARE PHYSICIAN: Dr. Malcolm. HEADING MAKER: Dr. Sinha at [facility]. CHIEF COMPLAINT: Syncope. HISTORY OF PRESENT ILLNESS: This is a 47-year-old female with a recent bypass and mitral valve replacement on 02/26/18, who presents after having 2 episodes of syncope. The patient was admitted on the here for NSTEMI, found to have severe mitral stenosis with right coronary artery disease. She was transferred to [place] for evaluation for bypass and mitral valve replacement, which she did have on the as mentioned. She states her recovery has been unremarkable. She was lying in bed yesterday afternoon, when she woke up coughing, rolled on the bed and after passing out and her had to help her get her off the floor. Similar episode happened last evening where she was sleeping, she woke up coughing, she had passed out on the floor and her had to get her back up. She called the refund specialist who recommended coming here for further evaluation. The patient states she has a chronic cough and Mucinex seems to be helping as well as her inhaler. It has not gotten worse. She denies any chest pain or shortness of breath. No exertional dyspnea. She has been getting up and down the stairs without any issues. No nausea, vomiting, or diarrhea. No urinary symptoms. No abdominal pain. No changes in her weight. She has had some lower extremity swelling that has since improved. Otherwise review of systems is negative. No fevers. In the emergency room, the patient had labs, imaging, and she was referred to the hospitalist service for further evaluation. PAST MEDICAL HISTORY: 1. Coronary artery disease status post coronary artery bypass graft on at [place]. 2. Mitral valve stenosis status post mechanical valve replacement 02/26/18 at [place]. 3. Hypertension. 4. Pulmonary hypertension. 5. COPD, on room air. 6. History of tobacco use. MEDICATIONS: 1. Albuterol inhaler 2 puffs every 4 hours as needed. 2. Aspirin 81 mg daily. 3. Atorvastatin 81 mg daily. 4. Digoxin 0.25 mg p.o. daily. 5. Mucinex 600 mg p.o. b.i.d. 6. Hornitos 5 mg every 6 hours as needed for pain. 7. Warfarin 2.5 mg p.o. daily. 8. Metoprolol 25 mg p.o. daily. ALLERGIES: PENICILLIN. FAMILY HISTORY: Both her parents are alive. No history of early coronary artery disease SOCIAL HISTORY: The patient lives at home with her , Tamir Trevino is her healthcare proxy. She quit smoking on 02/24/18. She was smoking about a pack per day for the past 30 years. Occasional alcohol use. 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 Code status is full code. REVIEW OF SYSTEMS: A 14-point review of systems as mentioned in the HPI, otherwise negative. PHYSICAL EXAMINATION GENERAL: In no acute distress, resting comfortably. VITAL SIGNS: Temp 96.7, pulse rate 105, respiratory rate 16, oxygen saturation 100% on room air, and blood pressure 118/86. HEENT: Head, normocephalic. Pupils are equal and reactive. Anicteric. Oropharynx: Mucous membranes are moist. NECK: Supple. No lymphadenopathy. RESPIRATORY: Diminished breath sounds. Bilateral expiratory wheezing. No increased work of breathing. CARDIAC: Regular rate and rhythm. Soft systolic murmur heard throughout. Prominent S1. ABDOMEN: Soft, nontender, and nondistended. EXTREMITIES: Trace pretibial edema. NEUROLOGIC: Alert and oriented x3. No gross focal neurologic deficits. DERM: The patient with a midline sternal incision that is clear, dry, and intact and healing well. DIAGNOSTIC STUDIES/LAB DATA: White count 10.5, hemoglobin 9.6, hematocrit 29, platelets 490. INR is 3.2. Sodium 132, potassium 3.8, chloride 100, bicarb 26 , BUN 7, creatinine 0.71, glucose 110, mag is 1.9. Troponin 0.3, repeat is 0.33. TSH 2.45. Urine is unremarkable. Chest CTA, no PE. Post surgical pericardial and pleural effusion with associated bilateral lower lobe volume loss. No evidence of tamponade. Great vessel wall thickening likely postsurgical. EKG shows sinus tach, nonspecific ST changes. ASSESSMENT: This is a 47-year-old female who is postop day 11 from coronary artery bypass graft and mitral valve replacement who presents to the emergency room after having 2 episodes of syncope in the setting of coughing. 1. Syncope. Assessment: It appears to be situational syncope in the setting of coughing; however with her recent cardiac surgery, there was concern for a possible arrhythmia. She does have pleural effusions. She does have pericardial effusion on her CTA. The patient is currently asymptomatic with no chest pain. I suspect her troponins are trending down from her prior admission 2 weeks ago. The emergency room tried to contact the [facility] cardiothoracic call team, they did not call back. They did contact Dr. Pollack here who recommended an overnight admission with an echocardiogram. Plan: We will admit her to telemetry. We will order an echo. We will repeat her troponin in the morning, continue her cardiac medications, and recommend follow up with Cardiology. We will obtain discharge summary from [place] to get full details of her hospitalization there. 2 Chronic medical problems. COPD, non-acute exacerbation but certainly wheezing with cough. We will switch her Mucinex to Tessalon Perles and start her on Dulera in addition to her albuterol. We will also order an incentive spirometer. 3. Mechanical mitral valve. Her INR is therapeutic. Continue her Coumadin. 4. FEN: Continue her on a heart healthy diet. 5. DVT prophylaxis: The patient scores high risk. She is anticoagulated on Coumadin. 6. Code status: Full code. TIME SPENT: Patient time greater than 45 minutes was spent doing the history and physical, more than half the time was spent in direct patient contact. [id number] #: [id number] MTDD
[2018-03-09] MEDS ORDERED: guaiFENesin ER TAB 600 MG PO SCH (11:00)
--- NOTE | 2018-03-09 11:24 | ECHO ---
Patient: JOANNA ALAMO [facility] Rec#: [id number] : 1970 Date: 03/09/2018 Age: 47y Height: 157 cm / 61.8 in Weight: 88 kg / 194.0 lbs Sex: F BSA: 1.88 Room#: 442 Admit Date#: 03/09/2018 Type: Inpatient Referring: Kyara Aquino Reading: Junior Pollack MD [employer] Consultant: Pina Riggins,LOLISCS,RDMS CC: Tao Malcolm MD Transthoracic Echocardiogram Indication: Syncope BP: 120/73 HR: 112 Rhythm: Tachycardia Findings History: S/P MV repair and CABG, HTN, COPD, smoker. Technical Comments: The study quality is fair. Left Ventricle: The left ventricular chamber size is normal. Moderate concentric left ventricular hypertrophy is observed. Left ventricular systolic function is at the lower limits of normal. The estimated ejection fraction is 50-55%. Post surgical hypokinesis of the interventricular septum is observed consistent with valve replacement. The assessment of diastolic function is non-diagnostic. Left Atrium: The left atrium is mild to moderately dilated. Right Ventricle: The right ventricle wall thickness is mildly increased. The right ventricular cavity size is normal. The right ventricular global systolic function is low normal. Right Atrium: The right atrial cavity size is normal. Aortic Valve: The aortic valve structure is not well visualized. There is a trace of aortic regurgitation. There is no evidence of aortic stenosis. Mitral Valve: There is a trace of mitral regurgitation. The mean gradient across the mitral valve is 4 mmHg. The mitral valve area, by pressure half time, is calculated at 2.6 cm2. A bileaflet mechanical mitral valve is present. The mechanical mitral valve appears well seated with normal function. Tricuspid Valve: The tricuspid valve leaflets are normal. There is trace tricuspid regurgitation. Unable to estimate the right ventricular systolic pressure. Pulmonic Valve: The pulmonic valve structure is not well visualized. There is trace to mild pulmonic regurgitation. Pericardium: There is a circumferential pericardial effusion. Small to moderate in size. Aorta: The ascending aorta is not well visualized. There is no dilatation of the aortic arch. The aortic root is normal in size. Pulmonary Artery: The main pulmonary artery is not well visualized. Venous: The inferior vena cava appears normal in size. There is less than 50% respiratory change in the inferior vena cava dimension. Conclusions Moderate concentric left ventricular hypertrophy is observed. Left ventricular systolic function is at the lower limits of normal. The estimated ejection fraction is 50-55%. Post surgical hypokinesis of the interventricular septum is observed consistent with valve replacement. There is a trace of aortic regurgitation. There is a trace of mitral regurgitation. The mechanical mitral valve appears well seated with normal function. The mean gradient across the mitral valve is 4 mmHg. There is a trace of mitral regurgitation. There is trace tricuspid regurgitation. Unable to estimate the right ventricular systolic pressure. There is a circumferential pericardial effusion. Small to moderate in size. Compared to study of 02/24/18,the LV function is the same, THe MV replacement and the small pericardial effusion is new Measurements Name Value Normal Range RVIDd (AP) 2D 1.8 cm (0.9 - 2.6) RAd ISD 4CH 4.2 cm (3.4 - 4.9) RA (A4C)W 2.9 cm (2.9 - 4.6) IVSd (2D) 1.7 cm (0.6 - 1) LVPWd (2D) 1.5 cm (0.6 - 1) LVIDd (2D) 3.7 cm (3.6 - 5.4) LVIDs (2D) 3.1 cm - LV FS (2D) 16 % (25 - 45) Aortic Annulus 2 cm (1.4 - 2.6) Ao root diameter (2D) 2.6 cm (2.1 - 3.5) Aortic arch 2.7 cm (1.8 - 3.4) LAd ISD 4CH 5 cm (2.9 - 5.3) LA ISD 4CH W 4.6 cm (2.5 - 4.5) Name Value Normal Range LA ESV BP (A/L) index 41 ml/m2 - Name Value Normal Range MV E-wave Vmax 1.1 m/sec - MV deceleration time 103 msec - MV A-wave Vmax 0.9 m/sec - MV E:A ratio 1.3 ratio - LV septal e' Vmax 0.09 m/sec - LV lateral e' Vmax 0.05 m/sec - LV E:e' septal ratio 12 ratio - LV E:e' lateral ratio 23 ratio - Name Value Normal Range AV Vmax 1.7 m/sec - AV VTI 20 cm - AV peak gradient 12 mmHg - AV mean gradient 7 mmHg - LVOT diameter 2 cm - LVOT Vmax 1.2 m/sec - LVOT VTI 15 cm - LVOT peak gradient 6 mmHg - LVOT mean gradient 3 mmHg - HAYLIE Vmax 0.8 m/sec - Name Value Normal Range MV Vmax 1.3 m/sec - MV VTI 21 cm - MV peak gradient 7 mmHg - MV mean gradient 4 mmHg - MV PHT 86 msec - MVA (PHT) 2.6 cm2 - MVA (continuity VTI) 2.3 cm2 - Name Value Normal Range IVC diameter 1.9 cm - Name Value Normal Range PV Vmax 0.8 m/sec - PV peak gradient 2.6 mmHg -
[2018-03-09 16:04] VITALS: BP 123/68
[2018-03-09] MEDS ORDERED: Warfarin TAB(*) 2.5 MG PO SCH (17:00)
[2018-03-09] MEDS ORDERED: Digoxin TAB* 0.25 MG PO SCH (17:00)
[2018-03-09] MEDS ORDERED: Atorvastatin* 80 MG TAB PO ONE (21:00)
--- NOTE | 2018-03-10 06:12 | DS ---
CC: Dr. Malcolm; Dr. Jackson * DISCHARGE SUMMARY: DATE OF ADMISSION: DATE OF DISCHARGE: 03/09/18 HOSPITAL COURSE: This 47-year-old woman presented with cough syncope. She had 2 episodes at home. I note she quit smoking just a few weeks ago and has had a persistent cough since then that is very slightly productive. She had only these 2 episodes which occurred. Syncope immediately followed significant coughing spells. She has had no other episodes of syncope. No other palpitations. She recently presented with acute coronary syndrome. She was found to have moderate to severe mitral stenosis as well as some mitral regurgitation. Coronary catheterization showed severe disease of the right coronary artery and nonobstructive disease of the other coronary arteries. She was sent to [facility] for coronary bypass grafting and mitral valve replacement, which was done. She is on warfarin. Her course seems to be otherwise uncomplicated. The patient was admitted to a telemetry bed. Hemoglobin was 9.6, white count 10.5. INR was 2.16. Sodium 132. Creatinine 0.71. BUN 7. Potassium 3.8. Three troponin levels were done and all about 0.3. I note when she was here last, her troponin peaked at 21, on 02/24/18. This may not actually had been the peak, it was the last value measured during that hospital stay. I discussed the case with Dr. Pollack. He is going to review her echocardiogram from today before the patient is discharged. The only change in the medication is, she will have benzonatate 200 mg t.i.d. p.r.n. and Mucinex 600 mg b.i.d. for 25 days. FINAL DIAGNOSES: 1. Cough syncope. 2. Coronary artery disease, status post bypass grafting. 3. Mitral stenosis, status post mitral valve repair. 4. Tobacco use disorder. The patient quit about 2 weeks ago. DISCHARGE MEDICATIONS: 1. Albuterol inhaler 2 puffs every 4 hours p.r.n. 2. Aspirin 81 mg daily. 3. Benzonatate 200 mg t.i.d. p.r.n. 4. Digoxin 0.25 mg daily at 5 p.m. 5. Hydrocodone/acetaminophen 5/325 one every 6 hours p.r.n. 6. Metoprolol tartrate 25 mg b.i.d. 7. Warfarin 2.5 mg daily at 5 p.m. 8. Guaifenesin ER 600 mg b.i.d. 9. Promethazine 25 mg every 6 hours p.r.n. 10. Hydrochlorothiazide 1 tablet daily. 11. Benazepril 1 tablet daily. DISCHARGE DISPOSITON: home DISCHARGE CONDITION: good [id number] #: [id number] MTDD
--- NOTE | 2018-03-10 10:19 | ED ---
Progress - Progress Note Progress Note: Dr. Villavicencio from radiology called emergency department after reviewing the CT a chest of this patient from March 08, 2018. He is concerned about the possibility of a high-grade stenosis of the common carotid arteries most likely resulting from a vasculitis. He recommended a CTA of the head and neck and a rheumatology workup for vasculitis. I called the patient at [phone] and a left a message asking her to call us here at the emergency department to discuss the findings. There was no answer when I called this number but I did leave a message. Course/Dx - Diagnoses Provider Diagnoses: Syncope Discharge - Sign-Out/Discharge Documenting (check all that apply): Patient Departure - Discharge Plan Condition: Stable Disposition: ADMITTED TO [facility] - Billing Disposition and Condition Condition: STABLE Disposition: Admitted to [facility]
== END 2018-03-09 16:00 | disposition home or self-care (01) ==
LOC: ED 17:06 → MEDTELE 03-09 02:47
PROVIDERS: ADMIT Pediatrics; ATTEND Internal Medicine
DX: R55 Syncope and collapse (principal); R05 Cough; I25.810 Atherosclerosis of coronary artery bypass graft(s) without angina pectoris; I05.0 Rheumatic mitral stenosis; Z95.2 Presence of prosthetic heart valve; Z87.891 Personal history of nicotine dependence; Z79.82 Long term (current) use of aspirin; J44.9 Chronic obstructive pulmonary disease, unspecified
CPT/HCPCS: 36415; 71046; 71275; 80053; 80162; 81003; 83605; 83735; 84443; 84484; 85025; 85610; 86850; 86900; 86901; 93005; 93306; 96361; 96374; 99285; A9270-GY; G0378; J2060; Q9967

== ENCOUNTER 2018-03-10 10:33 | Emergency (ER) | payer MEDICAID ==
[2018-03-10] MEDS ORDERED: Iohexol 350* (CONTRAST) 500 ML MDV IV ONE (11:14)
[2018-03-10 11:16] LABS: ABS Basophils 0.1 10^3/ul (0-0.2); ABS Eosinophils 0.1 10^3/ul (0-0.6); ABS Lymphocytes 1.6 10^3/ul (1.0-4.8); ABS Monocytes 0.6 10^3/ul (0-0.8); ABS Neutrophils 8.2 10^3/ul (1.5-7.7); ABS Nucleated RBC 0 10^3/ul; Eosinophil % 0.7 % (0-6); Hematocrit 29 % (35-47); Hemoglobin 9.3 g/dl (12.0-16.0); Lymphocyte % 15.3 % (25-47); Mean Corpuscular HGB Conc 32 g/dl (31-36); Mean Corpuscular Hemoglobin 25 pg (27-31); Mean Corpuscular Volume 78 fL (80-97); Mean Platelet Volume 7.2 um3 (7.4-10.4); Nucleated Red Blood Cells % 0; Platelet Count 578 10^3/ul (150-450); Red Blood Count 3.78 10^6/ul (4.00-5.40); Red Cell Distribution Width 22 % (10.5-15); White Blood Count 10.5 10^3/ul (3.5-10.8)
--- NOTE | 2018-03-10 11:25 | ED ---
Shortness of Breath - HPI Summary HPI Summary: This patient is a 47 year old F presenting to [facility] with a chief complaint of SOB since 03/09/18. She notes that SOB is a new sx for her. SHx CABG 02/26/18. She notes she was in the ED and had a CT yesterday for repeated syncopal episodes, and was called and instructed to return to the ED due to abnl CT findings. She endorses tachycardia, and denies all pain. She denies syncope today/since her ED visit. She denies CP, N/V/D, dizziness, lightheadedness. Rx blood thinners. - History of Current Complaint Chief Complaint: EDShortnessOfBreath Hx Obtained From: Patient Onset/Duration: Sudden Onset, Lasting Days, Still Present Timing: Constant Current Severity: Mild Dyspnea At: Rest Aggrevating Factors: Nothing Alleviating Factors: Nothing Associated Signs & Symptoms: Chest Pain Unrelated to Cough - Tachycardia, no CP Related History: Recent Trauma - 02/26/18 CABG. - Allergy/Home Medications Allergies/Adverse Reactions: Allergies Allergy/AdvReac Type Severity Reaction Status Date / Time Penicillins Allergy Vomiting Verified 03/08/18 17:29 Home Medications: Home Medications Benazepril (NF) [Lotensin (NF)] 10 mg PO DAILY 03/10/18 [History Confirmed 03/10] PMH/Surg Hx/FS Hx/Imm Hx Endocrine/Hematology History: Reports: Hx Anticoagulant Therapy Denies: Hx Diabetes Cardiovascular History: Reports: Hx Coronary Artery Disease, Hx Hypertension Denies: Hx Hypercholesterolemia Respiratory History: Reports: Hx Chronic Obstructive Pulmonary Disease (COPD), Hx Pneumonia GI History: Denies: Hx Irritable Bowel History: Denies: Hx Renal Disease Musculoskeletal History: Denies: Hx Arthritis, Hx Osteoporosis Sensory History: Denies: Hx Contacts or Glasses, Hx Deafness, Hx Hearing Aid Opthamlomology History: Denies: Hx Contacts or Glasses EENT History: Denies: Hx Deafness Neurological History: Denies: Hx Dementia Psychiatric History: Denies: Hx Autism - Cancer History Hx Chemotherapy: No Hx Radiation Therapy: No - Surgical History Surgery Procedure, Year, and Place: RIGHT ANKLE FX REPAIR, TUBAL LIGATION. CABG 02/26/18 - Immunization History Date of Tetanus Vaccine: Up to date Date of Influenza Vaccine: None Infectious Disease History: No Infectious Disease History: Denies: History Other Infectious Disease, Traveled Outside the [place] in Last 30 Days - Family History Known Family History: Negative: Cardiac Disease - OR, Hypertension, Diabetes, Blood Disorder - Blood clot - Social History Lives: Alone Alcohol Use: None Alcohol Amount: 4-5 drinks/ week Hx Substance Use: No Substance Use Type: Reports: None Hx Tobacco Use: Yes Smoking Status (MU): Former Smoker Type: Cigarettes Amount Used/How Often: 1/2 PPD Have You Smoked in the Last Year: Yes Review of Systems Negative: Fever, Chills Negative: Blurred Vision, Diplopia Negative: Sore Throat, Ear Ache Positive: Palpitations - tachycardia. Negative: Chest Pain Positive: Shortness Of Breath Negative: Vomiting, Diarrhea Negative: dysuria, hematuria Negative: Edema Negative: Bruising Neurological: Other - NEGATIVE: dizziness, lightheadedness Positive: Syncope - recent, currently resolved All Other Systems Reviewed And Are Negative: No Physical Exam - Summary Physical Exam Summary: Appearance: Alert, conversive, nontoxic appearing Skin: Warm, dry, no mottling, no rashes, no contusions, healing, clean, dry intact midline incision HEENT: EOMI, PERRL, slightly dry mucous membranes Neck: No masses on the neck, supple Respiratory: Clear to auscultation, breath sounds present, no rales, no rhonchi , no wheezes Cardiovascular: Tachycardic, pulses are symmetrical in both lower and upper extremities Abdomen: Soft, non-tender Bowel Sounds: Present Musculoskeletal: No CVA tenderness, no obvious deformity, moving all extremities in a grossly normal manner, no edema Neurological: A&Ox3, CN II-XII Intact, moving all extremities symmetrically Psychiatric: Normal affect and mood Triage Information Reviewed: Yes Vital Signs On Initial Exam: Initial Vitals Temp Pulse Resp BP Pulse Ox 98.2 F 101 20 146/89 100 03/10/18 10:40 03/10/18 10:40 03/10/18 10:40 03/10/18 10:40 03/10/18 10:40 Vital Signs Reviewed: Yes Diagnostics - Vital Signs Vital Signs Temp Pulse Resp BP Pulse Ox 03/10/18 11:01 100 20 135/94 99 03/10/18 11:00 99 14 100 03/10/18 10:49 24 03/10/18 10:40 98.2 F 101 20 146/89 100 - Laboratory Lab Results: Lab Results 03/10/18 Range/Units 10:55 WBC 10.5 (3.5-10.8) 10^3/ul RBC 3.78 L (4.00-5.40) 10^6/ul Hgb 9.3 L (12.0-16.0) g/dl Hct 29 L (35-47) % MCV 78 L (80-97) fL MCH 25 L (27-31) pg MCHC 32 (31-36) g/dl RDW 22 H (10.5-15) % Plt Count 578 H D (150-450) 10^3/ul MPV 7.2 L (7.4-10.4) um3 Neut % (Auto) 78.0 (38-83) % Lymph % (Auto) 15.3 L (25-47) % [place] % (Auto) 5.5 (0-7) % Eos % (Auto) 0.7 (0-6) % Baso % (Auto) 0.5 (0-2) % Absolute Neuts (auto) 8.2 H (1.5-7.7) 10^3/ul Absolute Lymphs (auto) 1.6 (1.0-4.8) 10^3/ul Absolute Monos (auto) 0.6 (0-0.8) 10^3/ul Absolute Eos (auto) 0.1 (0-0.6) 10^3/ul Absolute Basos (auto) 0.1 (0-0.2) 10^3/ul Absolute Nucleated RBC 0 10^3/ul Nucleated RBC % 0 ESR Pending Result Diagrams: 03/10/18 10:55 03/10/18 10:55 Lab Statement: Any lab studies that have been ordered have been reviewed, and results considered in the medical decision making process. - Radiology CXR Xray Interpretation: No Acute Changes Radiology Interpretation Completed By: Radiologist - SMALL LEFT LOWER LOBE INFILTRATE AND TRACE PLEURAL EFFUSION, UNCHANGED SIGNIFICANTLY. - CT CTA head/neck CT Interpretation: Positive (See Comments) CT Interpretation Completed By: Radiologist - 1. Advanced bilateral carotid artery disease involving both the common and internal carotid arteries as described in more detail above. 2. There is likely occlusion at the right carotid bulb due to mixed attenuation atherosclerosis. More distally the right internal carotid artery fills with contrast. 3. Noncalcified atheroma narrows the lumen of the left common carotid artery at multiple levels culminating in high-grade stenosis/near complete occlusion of the common carotid artery just below the carotid bifurcation. 4. High-grade stenosis at the origin of the left vertebral artery immediately beyond its branch point from the left subclavian artery. 5. As was seen on yesterday's CTA of the chest there are bilateral pleural effusions. Dr. Grossman has reviewed this report. - EKG 1049 Cardiac Rate: Tachycardia - 101 EKG Rhythm: Sinus Tachycardia Ectopy: None EKG Interpretation: nl QRS, nl QTc, ST depressions and inverted T's in V4, V5, V6, I, II, AVF. Course/Dx - Course Course Of Treatment: A 47-year-old F presents to the ED with a CC of SOB for 1 day. (+) SOB, tachycardia. (-) CP, N/V/D, dizziness, lightheadedness, syncope, fever, chills. CABG 02/26/18, pt instructed to return to ED due to abnl findings on a CT taken yesterday. A CXR reveals SMALL LEFT LOWER LOBE INFILTRATE AND TRACE PLEURAL EFFUSION, UNCHANGED SIGNIFICANTLY. An EKG reveals sinus tachycardia at 101 BPM with nl QRS, nl QTc, and ST depressions and inverted T's in V4, V5, V6, I, II, AVF. A CTA head/neck reveals 1. Advanced bilateral carotid artery disease involving both the common and internal carotid arteries as described in more detail above. 2. There is likely occlusion at the right carotid bulb due to mixed attenuation atherosclerosis. More distally the right internal carotid artery fills with contrast. 3. Noncalcified atheroma narrows the lumen of the left common carotid artery at multiple levels culminating in high-grade stenosis/near complete occlusion of the common carotid artery just below the carotid bifurcation. 4. High-grade stenosis at the origin of the left vertebral artery immediately beyond its branch point from the left subclavian artery. 5. As was seen on yesterday's CTA of the chest there are bilateral pleural effusions. In the ED course, pt was given contrast. Her labs show a trop of .20, low RBC, low H&H, low MCV, low MCH, low Na+, low Cl-, high plt count, low MPV, low lymph %, high abs neuts, high glucose, high ALT, high alkaline phosphatase, and high CRP. - Diagnoses Provider Diagnoses: Carotid artery stenosis, Syncope - Physician Notifications Discussed Care of Patient With: Esther Webb Time Discussed With Above Provider: 13:05 Instructed by Provider To: Other - recommends transfer due to [facility] lacking a vascular surgeon. Discharge - Sign-Out/Discharge Documenting (check all that apply): Patient Departure - transfer - Discharge Plan Condition: Stable Disposition: TRANS HIGHER LVL OF CARE FAC Referrals: Tao Malcolm MD [Primary Care Provider] - - Billing Disposition and Condition Condition: STABLE Disposition: Trans Higher Lvl of Care Fac - Attestation Statements Document Initiated by Scribe: Yes Documenting Scribe: Kwesi Heart Provider For Whom Ryannee is Documenting (Include Credential): Dr. Michelle Grossman MD Scribe Attestation: Kwesi Maxwell, scribed for Dr. Michelle Grossman MD on 03/10/18 at 1400. Scribe Documentation Reviewed: Yes Provider Attestation: The documentation as recorded by the scribeKwesi accurately reflects the service I personally performed and the decisions made by ga, Dr. Michelle Grossman MD Consult Consult: 1335 Dr. Ordoñez: Her carotid stenosis may be contributing factor to syncope but unlikely the sole etiology, hence she would need admission for syncope work-up and further evaluation, and he would see her on an inpatient basis. 1345 Dr. Foss: Accepts transfer.
[2018-03-10 11:28] LABS: EGFR Non-African American 81.9 (>60)
--- NOTE | 2018-03-10 11:42 | RAD ---
INDICATION: Shortness of breath. COMPARISON: Comparison is made with a prior study from March 08, 2018. TECHNIQUE: Dual-energy PA and lateral views of the chest were obtained. FINDINGS: The patient is status post sternotomy, coronary bypass surgery and valve surgery. The heart is upper limits of normal in size and unchanged. The lungs are underinflated. There is a small infiltrate in the left lower lobe and appears to be a trace parapneumonic effusion. This appears similar to the prior study. IMPRESSION: SMALL LEFT LOWER LOBE INFILTRATE AND TRACE PLEURAL EFFUSION, UNCHANGED SIGNIFICANTLY.
--- OUTSIDE RECORDS SUMMARY | 2018-03-10 11:49 | XMS REPORT ---
:1970 External Reference #:[id number] Author Organization [facility] Address [address] [place] [address] Phone [phone] Care Team Providers Name Role Phone Nima Longoria MD Care Team Information [employer] Unavailable Problems Description No Information Social History Description No Information Available Allergies, Adverse Reactions, Alerts Description No Information Medications Description No Information Results Description No Information Procedures Date CPT Code Description Status 02/25/2018 37216 RT & lt Cath W/Injx HRT Art&L Ventr Img S&I Completed 02/24/2018 11510 ECHO Transthorasic Realtime 2D W Doppler & Color Flow Completed Hosp 02/04/2017 53651 ECHO Transthorasic Realtime 2D W Doppler & Color Flow Completed Hosp Encounters Type Date Location Provider CPT E/M Dx [facility], [address] I34.0 11:16a Hospitalists Al I24.9 I27.20 F17.210 Office Visit 02/24/2018 3:30p [facility], 45758 I21.4 Instructor Painting AT [facility] , FACC, FSCAI I10 Z72.0 I05.2 Office Visit 02/24/2018 3:03p [facility] Lora Jackson M.D. 34719 I21.4 Instructor Painting I20.9 I10 Z72.0 I24.9 Office Visit 02/24/2018 [facility], [address] I24.9 Hospitalists Al F17.210 I10 I21.9 E87.6 Office Visit 02/04/2017 9:36a [facility],[place] [address] I16.0 Hospitalists R74.8 I27.2 Z72.0 Office Visit 02/03/2017 9:35a [facility]pc Kenny Pantoja, [address] I16.0 Hospitalists N.P. R74.8 Z72.0 Office Visit 11/04/2016 2:58p [facility] [place] [address] I16.0 Hospitalists R74.8 R06.09 R51 Plan of Care Future Appointment(s):03/30/2018 10:00 am - [facility] ECHO Schedule at [facility]04/02/2018 3:00 pm - Lora Jackson M.D. at [facility]
--- NOTE | 2018-03-10 12:35 | RAD ---
CPT II: CPT II Codes: 3100F INDICATION: Great vessel wall thickening and narrowing identified on previous day's CTA of the chest COMPARISON: CTA chest March 08, 2018 TECHNIQUE: A CT angiogram of the head and neck was performed with 80 cc of Omnipaque 350. Contiguous axial sections were obtained from the thoracic inlet through the little shell [place] of [place]. Images were reconstructed in the sagittal, coronal planes and in a 3-D volume rendered format. The distal cervical internal carotid artery diameter is used as the denominater for stenosis measurement. CTA NECK: Similar to the previous day CTA, there is the appearance of vessel wall thickening at the arch of the aorta. The great vessels branching off of the arch of the aorta and standard anatomic configuration. At its origin there is narrowing of the left common carotid artery with the lumen narrowing to a small as just under 3 mm processes axial image 22). More superiorly, there is noncalcified mural thrombus that narrows the lumen approximately 50% (axial image 66). 2 a lesser extent there is noncalcified atherosclerosis that causes mild narrowing of the superiormost right common carotid artery, also narrowing the lumen approximately 50% (image 102). Right: The mostly noncalcified plaque narrowing the lumen of the superior right common carotid artery extends to the carotid bulb becoming coarsely calcified (image 112). There appears to be a focus of occlusion at the carotid bulb at the origin of the right internal carotid artery (image 110 - 114). More distally the right internal carotid artery fills with contrast Left: The mostly noncalcified plaque in the common carotid artery extends superiorly causing at least high-grade stenosis measuring less than a millimeter in diameter just below the carotid bifurcation (axial image 103). The plaque becomes more calcified at the carotid bulb and the left internal carotid artery has a short axis diameter of 4 mm beyond the carotid bulb yielding at least 75% degree stenosis. Immediately beyond its branch point from the left subclavian artery, there is high-grade stenosis due to mixed attenuation atherosclerosis at the left vertebral artery (image 50 on series 7). CTA of the brain: The internal carotid, anterior and middle cerebral arteries appear are patent without high grade stenosis or occlusion. The vertebral, basilar and posterior cerebral arteries appear patent without high grade stenosis or occlusion. The right posterior communicating artery is absent causing the little shell tribe of [place] to be incomplete. No focal luminal filling defect, aneurysm or vascular malformation is seen. NON-ARTERIAL FINDINGS: Again seen are right greater than left bilateral dependent pleural effusions. IMPRESSION: 1. Advanced bilateral carotid artery disease involving both the common and internal carotid arteries as described in more detail above. 2. There is likely occlusion at the right carotid bulb due to mixed attenuation atherosclerosis. More distally the right internal carotid artery fills with contrast. 3. Noncalcified atheroma narrows the lumen of the left common carotid artery at multiple levels culminating in high-grade stenosis/near complete occlusion of the common carotid artery just below the carotid bifurcation. 4. High-grade stenosis at the origin of the left vertebral artery immediately beyond its branch point from the left subclavian artery. 5. As was seen on yesterday's CTA of the chest there are bilateral pleural effusions. Findings discussed over the telephone with Dr. Grossman at 1230 hours on March 10, 2018
[2018-03-10] MEDS ORDERED: Calcium Carbonate CHEW TAB* 500 MG (TUMS) PO ONE (13:57)
[2018-03-10] MEDS ORDERED: HYDROcodone/ACETAMIN 5-325 MG* 1 TAB PO ONE (13:57)
[2018-03-10 15:22] VITALS: BP 153/108
== END 2018-03-10 15:27 | disposition short-term general hospital (02) ==
LOC: ED 10:33
DX: I65.29 Occlusion and stenosis of unspecified carotid artery (principal); R55 Syncope and collapse; R07.9 Chest pain, unspecified; R06.02 Shortness of breath; Z87.891 Personal history of nicotine dependence
CPT/HCPCS: 36415; 70496; 70498; 71046; 80053; 83605; 84484; 85025; 85652; 86140; 93005; 99284; Q9967

== ENCOUNTER → 2018-12-03 08:20 | Day surgery (SDC) | payer OTHER ==
[~2018-12-03 08:20] MED LIST: Heparin 2 UNITS/ML IVPREMIX* 3,000 UNIT/1,500 ML BAG IV ONE; Heparin(*) 1000 UNIT/ML 10 ML VIAL CATH LAB IV ONE; Iohexol 350 (CONTRAST) 200 ML MDV IV ONE; Lidocaine 1% INJ* 10 MG/ML 30 ML SDV ONE; Midazolam* 1 MG/ML 5 ML VIAL (5 MG) ONE; NS 0.9% 1000 ML** 1,000 ML IV SCH; VERAPAMIL 2.5 MG/ML 2 ML VIAL ** 5 mg/2 ml ONE; fentaNYL* 50 MCG/ML 2 ML VIAL (100 MCG VIAL) ONE; nitroGLYCERIN DRIP* 25,000 MCG/250 ML BTL ONE
[2018-12-03 09:07] LABS: INR 1.45 (0.82-1.09)
[2018-12-03 14:09] VITALS: BP 128/86
--- NOTE | 2018-12-14 18:22 | CATH ---
CC: Dr. Nolasco; Dr. Jackson; Dr. Elise, [facility] * CATH REPORT: DATE OF PROCEDURE: 12/03/18 - [facility] CATH PRIMARY CARE PHYSICIAN: Dr. Nolasco. CIGAR HEAD PERFORATOR: Dr. Jackson. PROCEDURES: Right radial artery access, bilateral selective coronary cineangiography, saphenous vein graft angiography. HISTORY: A 48-year-old woman with prior mitral mechanical valve replacement and vein graft bypass to the RCA, now presenting with exertional angina, stress imaging suggested anterior wall ischemia. PROCEDURE ACCESS: Right radial artery sheath 6F slender. DIAGNOSTIC CATHETERS: 5F TIG4, 5 left bypass for the vein graft. MEDICATIONS: 1. Subcu lidocaine. 2. IV Versed. 3. IV fentanyl. 4. Heparin 3000 units. 5. Verapamil 3 mg. 6. Nitroglycerin 300 mcg IA. HEMODYNAMICS: Initial AO 107/67. Final BP 131/74. ANGIOGRAPHY: Incidentally noted is a mechanical tilting disc valve. Left main: The left main is relatively long, has a distal tubular 20% to 30% stenosis. LAD: The LAD is heavily calcified proximally, has a near ostial 80% stenosis, not present on the cath 1 year prior. The mid LAD has a pair of small diagonals , after the second diagonal the LAD has a tubular smooth 40% stenosis. Circumflex: The circumflex is not dominant, is large, supplies a large bifurcated marginal branch, has no significant stenosis. RCA: The RCA is dominant, moderate, has diffuse proximal stenosis, in the mid portion there is an 80% stenosis followed by a tubular 70% stenosis before the acute marginal branch. Distal RCA has competitive flow. Saphenous vein graft to RCA: It is large, smooth, inserts into the RPDA and it fills antegrade as well as retrograde without any insertion stenosis. There is a very well formed apical RPDA collateral to the distal LAD backfilling to the second small diagonal branch. CONCLUSION: 1. Two-vessel disease with patent vein graft to severely diseased RCA, progression of disease at the ostium and mid LAD, concordant with a nuclear imaging study. Mild left main stenosis. 2. She will be referred to a tertiary center for evaluation regarding ostial LAD revascularization. [id number]/[facility] #: [id number] [facility]
== END | disposition home or self-care (01) ==
LOC: CHICATH 08:20
PROVIDERS: ATTEND Internal Medicine Cardiovascular Disease
DX: I25.119 Atherosclerotic heart disease of native coronary artery with unspecified angina pectoris (principal); R94.39 Abnormal result of other cardiovascular function study; Z95.1 Presence of aortocoronary bypass graft; Z87.891 Personal history of nicotine dependence; I05.2 Rheumatic mitral stenosis with insufficiency; Z79.01 Long term (current) use of anticoagulants
CPT/HCPCS: 36415; 85610; 93458; 99156; 99157; J1644; J2250; J3010

== ENCOUNTER 2019-12-10 19:19 | Observation (INO) ==
[2019-12-10] MEDS ORDERED: NS 0.9% 1000 ml BAG 2,000 ML IV ONE (19:45)
[2019-12-10 20:20] LABS: ABS Lymphocytes 1.7 10^3/ul (1.0-4.8); ABS Monocytes 0.3 10^3/ul (0-0.8); ABS Neutrophils 6.4 10^3/ul (1.5-7.7); Eosinophil % 0.4 %; Hematocrit 26 % (35-47); Hemoglobin 8.9 g/dL (12.0-16.0); Lymphocyte % 20.3 %; Mean Corpuscular HGB Conc 35 g/dL (31-36); Mean Corpuscular Hemoglobin 32 pg (27-31); Mean Corpuscular Volume 90 fL (80-97); Mean Platelet Volume 7.1 fL (7.4-10.4); Nucleated Red Blood Cells % 0.1; Platelet Count 319 10^3/uL (150-450); Red Blood Count 2.82 10^6 /uL (3.70-4.87); Red Cell Distribution Width 17 % (10-15); White Blood Count 8.5 10^3/uL (3.5-10.8)
[2019-12-10 20:39] LABS: Albumin 3.9 g/dL (3.2-5.2); Albumin/Globulin Ratio 1.7 (1-3); BUN/Creatinine Ratio 9.7 (8-20); Calcium 8.5 mg/dL (8.6-10.3); EGFR African American 69.2 (>60); EGFR Non-African American 57.2 (>60); Globulin 2.3 g/dL (2-4); Potassium 3.1 mmol/L (3.5-5.0); Total Bilirubin 0.3 mg/dL (0.2-1.0); Total Protein 6.2 g/dL (6.4-8.9)
[2019-12-10 20:42] LABS: Troponin I 0.01 ng/mL (<0.03)
[2019-12-10 20:46] LABS: HCG Pregnancy 0.63 mIU/mL
[2019-12-10] MEDS ORDERED: Potassium Chlor 10 meq TAB PO ONE (21:34)
[2019-12-10] MEDS ORDERED: Al Hydrox/Mg Hydrox/Simet LIQ 30 ML UDC PO ONE (22:40)
[2019-12-11] MEDS ORDERED: NS 0.9% 1000 ml BAG 1,000 ML IV ONE (00:30)
[2019-12-11] MEDS ORDERED: Morphine 2 MG/ML SYRINGE IV PRN (01:09)
[2019-12-11] MEDS ORDERED: Potassium Chlor 20 meq TAB.ER PO ONE (01:09)
[2019-12-11] MEDS ORDERED: Ondansetron 4 mg VIAL 2 MG/ML 2 ml VIAL IV PRN (01:09)
[2019-12-11 01:19] LABS: Hematocrit 22 % (35-47); Hemoglobin 7.6 g/dL (12.0-16.0)
[2019-12-11 01:26] LABS: INR 3.9 (0.82-1.09)
[2019-12-11 01:35] LABS: Magnesium 1.8 mg/dL (1.9-2.7)
[2019-12-11] MEDS ORDERED: Albuterol HFA INHALER 8 gm MDI INH PRN (01:45)
[2019-12-11 06:11] LABS: ABS Basophils 0.1 10^3/ul (0-0.2); ABS Lymphocytes 2.1 10^3/ul (1.0-4.8); ABS Monocytes 0.4 10^3/ul (0-0.8); ABS Neutrophils 4.7 10^3/ul (1.5-7.7); Eosinophil % 0.4 %; Hematocrit 23 % (35-47); Hemoglobin 7.8 g/dL (12.0-16.0); Lymphocyte % 28.5 %; Mean Corpuscular HGB Conc 34 g/dL (31-36); Mean Corpuscular Hemoglobin 31 pg (27-31); Mean Corpuscular Volume 91 fL (80-97); Mean Platelet Volume 6.9 fL (7.4-10.4); Nucleated Red Blood Cells % 0.2; Platelet Count 262 10^3/uL (150-450); Red Cell Distribution Width 17 % (10-15); White Blood Count 7.3 10^3/uL (3.5-10.8)
[2019-12-11 06:32] LABS: BUN/Creatinine Ratio 8.3 (8-20); Calcium 7.3 mg/dL (8.6-10.3); EGFR African American 87.6 (>60); EGFR Non-African American 72.4 (>60); Potassium 3.8 mmol/L (3.5-5.0)
[2019-12-11 09:35] LABS: Hematocrit 26 % (35-47); Hemoglobin 9.1 g/dL (12.0-16.0)
[2019-12-11 12:04] VITALS: BP 98/46
[2019-12-11] MEDS ORDERED: Warfarin per PHARMACY **NOTE FOLLOW UP SCH (17:00)
== END 2019-12-11 13:30 | disposition home or self-care (01) ==
LOC: ED 19:19 → MEDTELE 12-11 01:37 → INTOOBSV 12-11 01:37 → MEDTELE 12-11 02:55
PROVIDERS: ADMIT Hospitalist; ATTEND Internal Medicine